=== PATIENT | male | born 1980 | race Caucasian/White ===

== ENCOUNTER → 2020-02-05 15:01 | Outpatient (BNVA) | payer OTHER, SELFPAY | PROVIDERS: Visit Provider Internal Medicine | DX: F11.20 Opioid dependence, uncomplicated (principal) | CPT/HCPCS: 80305; 99212 ==

== ENCOUNTER → 2020-02-15 14:28 | Outpatient (BNVA) | payer OTHER, SELFPAY | PROVIDERS: Visit Provider Internal Medicine | DX: F11.99 Opioid use, unspecified with unspecified opioid-induced disorder (principal) | CPT/HCPCS: 80305; 99211 ==

== ENCOUNTER → 2020-02-26 11:06 | Outpatient (BNVA) | payer OTHER, SELFPAY | PROVIDERS: Visit Provider Internal Medicine | DX: F11.99 Opioid use, unspecified with unspecified opioid-induced disorder (principal) | CPT/HCPCS: 80305; 99212 ==

== ENCOUNTER → 2020-03-02 13:35 | Outpatient (BNVA) | payer OTHER, SELFPAY | PROVIDERS: Visit Provider Internal Medicine | DX: F11.20 Opioid dependence, uncomplicated (principal) | CPT/HCPCS: 80305; 99212 ==

== ENCOUNTER → 2020-03-07 15:26 | Outpatient (BNVA) | payer OTHER, SELFPAY | PROVIDERS: Visit Provider Internal Medicine | DX: F11.99 Opioid use, unspecified with unspecified opioid-induced disorder (principal) | CPT/HCPCS: 80305; 99212 ==

== ENCOUNTER → 2020-03-11 13:44 | Outpatient (BNVA) | payer OTHER, SELFPAY | PROVIDERS: Visit Provider Internal Medicine | DX: F11.20 Opioid dependence, uncomplicated (principal) | CPT/HCPCS: 80305; 99212 ==

== ENCOUNTER 2020-03-14 07:45 | Outpatient (REF) | payer OTHER, SELFPAY | END 2020-03-14 07:46 | disposition home or self-care (01) | LOC: HO.LAB 07:45 | PROVIDERS: Visit Provider Internal Medicine | DX: Z20.828 Contact with and (suspected) exposure to other viral communicable diseases (principal) | CPT/HCPCS: C9803; U0003 ==

== ENCOUNTER → 2020-03-21 13:40 | Outpatient (BNVA) | payer OTHER, SELFPAY | PROVIDERS: Visit Provider Internal Medicine | DX: Z76.89 Persons encountering health services in other specified circumstances (principal) ==

== ENCOUNTER → 2020-03-28 16:02 | Outpatient (BNVA) | payer OTHER, SELFPAY | PROVIDERS: Visit Provider Internal Medicine | DX: Z76.89 Persons encountering health services in other specified circumstances (principal) ==

== ENCOUNTER → 2020-04-04 13:43 | Outpatient (BNVA) | payer OTHER, SELFPAY | PROVIDERS: Visit Provider Internal Medicine | DX: Z76.89 Persons encountering health services in other specified circumstances (principal) | CPT/HCPCS: Q3014 ==

== ENCOUNTER → 2020-04-18 14:58 | Outpatient (BNVA) | payer OTHER, SELFPAY | PROVIDERS: Visit Provider Internal Medicine | DX: Z76.89 Persons encountering health services in other specified circumstances (principal) ==

== ENCOUNTER → 2020-05-02 14:29 | Outpatient (BNVA) | payer OTHER, SELFPAY | PROVIDERS: Visit Provider Internal Medicine | DX: F11.20 Opioid dependence, uncomplicated (principal) | CPT/HCPCS: Q3014 ==

== ENCOUNTER → 2020-05-13 15:01 | Outpatient (BNVA) | payer OTHER, SELFPAY | PROVIDERS: Visit Provider Internal Medicine | DX: F11.99 Opioid use, unspecified with unspecified opioid-induced disorder (principal) | CPT/HCPCS: 99212 ==

== ENCOUNTER → 2020-05-17 12:55 | Outpatient (BNVA) | payer OTHER, SELFPAY | PROVIDERS: Visit Provider Internal Medicine | DX: F11.99 Opioid use, unspecified with unspecified opioid-induced disorder (principal); Z51.81 Encounter for therapeutic drug level monitoring | CPT/HCPCS: 80305; Q3014 ==

== ENCOUNTER → 2020-05-23 13:02 | Outpatient (BNVA) | payer OTHER, SELFPAY | PROVIDERS: Visit Provider Internal Medicine | DX: Z13.89 Encounter for screening for other disorder (principal) | CPT/HCPCS: 99212 ==

== ENCOUNTER → 2020-05-30 11:22 | Outpatient (BNVA) | payer OTHER, SELFPAY | PROVIDERS: Visit Provider Internal Medicine | DX: Z13.89 Encounter for screening for other disorder (principal) | CPT/HCPCS: Q3014 ==

== ENCOUNTER → 2020-05-31 14:51 | Outpatient (BNVA) | payer OTHER, SELFPAY | PROVIDERS: Visit Provider Internal Medicine | DX: F11.99 Opioid use, unspecified with unspecified opioid-induced disorder (principal) | CPT/HCPCS: 80305; 96372; 99212 ==

== ENCOUNTER → 2020-06-27 11:26 | Outpatient (BNVA) | payer OTHER, SELFPAY | PROVIDERS: Visit Provider Internal Medicine | DX: F11.99 Opioid use, unspecified with unspecified opioid-induced disorder (principal) | CPT/HCPCS: 96372; 99212; Q9992 ==

== ENCOUNTER → 2021-03-15 13:26 | Outpatient (BNVA) | payer OTHER, SELFPAY | PROVIDERS: Visit Provider Internal Medicine | DX: F11.20 Opioid dependence, uncomplicated (principal); Z51.81 Encounter for therapeutic drug level monitoring; Z79.899 Other long term (current) drug therapy | CPT/HCPCS: 80305; 99212 ==

== ENCOUNTER → 2021-03-22 13:10 | Outpatient (BNVA) | payer OTHER, SELFPAY | PROVIDERS: Visit Provider Internal Medicine | DX: Z51.81 Encounter for therapeutic drug level monitoring (principal); F11.90 Opioid use, unspecified, uncomplicated | CPT/HCPCS: 80305; 99212 ==

== ENCOUNTER → 2021-04-05 14:07 | Outpatient (BNVA) | payer OTHER, SELFPAY | PROVIDERS: Visit Provider Internal Medicine | DX: Z51.81 Encounter for therapeutic drug level monitoring (principal); F11.20 Opioid dependence, uncomplicated | CPT/HCPCS: 80305; 99212 ==

== ENCOUNTER → 2021-04-12 14:13 | Outpatient (BNVA) | payer OTHER, SELFPAY | PROVIDERS: Visit Provider Internal Medicine | DX: Z51.81 Encounter for therapeutic drug level monitoring (principal); F11.20 Opioid dependence, uncomplicated | CPT/HCPCS: 80305; 99212 ==

== ENCOUNTER → 2021-04-26 13:46 | Outpatient (BNVA) | payer OTHER, SELFPAY | PROVIDERS: PCP Nurse Practitioner Family; Visit Provider Internal Medicine | DX: Z51.81 Encounter for therapeutic drug level monitoring (principal); F11.20 Opioid dependence, uncomplicated | CPT/HCPCS: 80305 ==

== ENCOUNTER 2021-05-02 16:46 | Outpatient (REF) | payer OTHER, SELFPAY ==
[2021-05-03 05:26] LABS: CT PCR NOT DETECTED (Not Detect.); NG PCR NOT DETECTED (Not Detect.)
== END 2021-05-02 16:47 | disposition home or self-care (01) ==
LOC: HO.LNP 16:46
PROVIDERS: Visit Provider Physician Assistant
DX: R30.0 Dysuria (principal)
CPT/HCPCS: 87491; 87591

== ENCOUNTER → 2021-05-10 13:48 | Outpatient (BNVA) | payer OTHER, SELFPAY | PROVIDERS: Visit Provider Internal Medicine | DX: F11.20 Opioid dependence, uncomplicated (principal); Z51.81 Encounter for therapeutic drug level monitoring; Z79.899 Other long term (current) drug therapy | CPT/HCPCS: 80305; 99212 ==

== ENCOUNTER → 2021-06-07 11:51 | Outpatient (BNVA) | payer OTHER, SELFPAY | PROVIDERS: Visit Provider Internal Medicine | DX: Z51.81 Encounter for therapeutic drug level monitoring (principal); F11.20 Opioid dependence, uncomplicated | CPT/HCPCS: 99212 ==

== ENCOUNTER → 2021-07-07 11:35 | Outpatient (BNVA) | payer OTHER, SELFPAY | PROVIDERS: Visit Provider Internal Medicine | DX: F11.20 Opioid dependence, uncomplicated (principal) | CPT/HCPCS: 99212 ==

== ENCOUNTER → 2021-08-04 14:46 | Outpatient (BNVA) | payer OTHER, SELFPAY | PROVIDERS: Visit Provider Internal Medicine | DX: Z51.81 Encounter for therapeutic drug level monitoring (principal); F11.20 Opioid dependence, uncomplicated | CPT/HCPCS: 80305; 99212 ==

== ENCOUNTER → 2021-09-01 11:31 | Outpatient (BNVA) | payer OTHER, SELFPAY | PROVIDERS: Visit Provider Internal Medicine | DX: Z51.81 Encounter for therapeutic drug level monitoring (principal); F11.20 Opioid dependence, uncomplicated | CPT/HCPCS: 80305; 99212 ==

== ENCOUNTER → 2021-10-27 11:30 | Outpatient (BNVA) | payer OTHER, SELFPAY | PROVIDERS: Visit Provider Internal Medicine | DX: Z51.81 Encounter for therapeutic drug level monitoring (principal); F11.20 Opioid dependence, uncomplicated | CPT/HCPCS: 80305; 99212 ==

== ENCOUNTER → 2022-01-05 10:38 | Outpatient (BNVA) | payer OTHER, SELFPAY | PROVIDERS: Visit Provider Internal Medicine | DX: Z51.81 Encounter for therapeutic drug level monitoring (principal); F11.20 Opioid dependence, uncomplicated | CPT/HCPCS: 99212 ==

== ENCOUNTER → 2022-03-07 10:39 | Outpatient (BNVA) | payer OTHER, SELFPAY | PROVIDERS: Visit Provider Internal Medicine | DX: Z51.81 Encounter for therapeutic drug level monitoring (principal); F11.20 Opioid dependence, uncomplicated | CPT/HCPCS: 99212 ==

== ENCOUNTER → 2022-05-14 11:35 | Outpatient (BNVA) | payer OTHER, SELFPAY | PROVIDERS: Visit Provider Internal Medicine | DX: F11.20 Opioid dependence, uncomplicated (principal); Z51.81 Encounter for therapeutic drug level monitoring; Z79.899 Other long term (current) drug therapy | CPT/HCPCS: 99212 ==

== ENCOUNTER → 2022-07-13 11:33 | Outpatient (BNVA) | payer OTHER, SELFPAY | PROVIDERS: PCP Nurse Practitioner Family; Visit Provider Nurse Practitioner Psychiatric/Mental Health | DX: F11.20 Opioid dependence, uncomplicated (principal); Z79.899 Other long term (current) drug therapy | CPT/HCPCS: 99212 ==

== ENCOUNTER → 2022-09-07 11:28 | Outpatient (BNVA) | payer OTHER, SELFPAY | PROVIDERS: PCP Nurse Practitioner Family; Visit Provider Nurse Practitioner Psychiatric/Mental Health | DX: F11.20 Opioid dependence, uncomplicated (principal); Z79.899 Other long term (current) drug therapy | CPT/HCPCS: 99212 ==

== ENCOUNTER 2022-12-14 13:43 | Outpatient (REF) | payer OTHER, SELFPAY ==
[2022-12-14 16:29] LABS: Alanine Aminotransferase 60 U/L (0-40); Albumin Level 4.5 g/dL (3.5-5.0); Alkaline Phosphatase 64 U/L (39-117); Anion Gap 11 (12-20); Aspartate Amino Transferase 35 U/L (5-37); Bilirubin Total 0.5 mg/dL (0.0-1.0); Blood Urea Nitrogen 13 mg/dL (9-16); Calcium 9.9 mg/dL (8.4-10.2); Carbon Dioxide 27 mmol/L (22-29); Chloride 105 mmol/L (96-108); Estimated Glomerular Filt Rate > 60; Glucose Random 138 mg/dL (60-115); Potassium 3.9 mmol/L (3.3-5.1); Sodium 139 mmol/L (135-145); Total Protein 7.2 g/dL (6.5-8.0)
== END 2022-12-14 13:44 | disposition home or self-care (01) ==
LOC: HO.LAB 13:43
PROVIDERS: PCP Nurse Practitioner Family; Visit Provider Nurse Practitioner Psychiatric/Mental Health
DX: F11.20 Opioid dependence, uncomplicated (principal); Z79.899 Other long term (current) drug therapy
CPT/HCPCS: 36415; 80053; 99212

== ENCOUNTER 2022-12-14 13:43 | Outpatient (AMB) | payer OTHER, SELFPAY ==
--- NOTE | 2022-12-14 13:48 | MHC.OFFVIS ---
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 Required: No Allergies lamotrigine [Lamictal] Allergy (Severe, Verified 12/14/22 13:56) rash amoxicillin Allergy (Mild, Verified 12/14/22 13:56) rash penicillins Allergy (Unknown, Uncoded 12/14/22 13:56) hives sulfa Allergy (Unknown, Uncoded 12/14/22 13:56) hives Do you need a note to return to daycare/school/sports/work: No HPI MAT Visit HPI Details Pt presents for OUD treatment follow up Currently being prescribed Suboxone 8 mg daily Denies any side effects related to medication--reports constipation has improved Engaged in outpt treatment with Amitriptyline increased to 100mg Has not had physical needs to be seen--will be completing lab work today Stopped working at [employer] --has been working with [employer] [facility] Medical History (Updated 07/13/22 @ 13:11 by Fide Canela CNP) Opioid use disorder Social History Patient Tobacco Use Status: Never used Tobacco Review of Systems Const Reports as per HPI and Reports no additional complaints Physical Exam Vital Signs: Last Vital Signs Pulse 94 12/14/22 13:55 BP 128/74 12/14/22 13:55 Pulse Ox 97 12/14/22 13:55 Oxygen Delivery Method Room Air 12/14/22 13:55 Const General: cooperative, healthy appearing and anxious Psych Appearance: well kempt Speech and movement: Clear speech present Affect: Anxious affect present Attitude: cooperative Thought process: Normal thought process present Insight: Fair insight present (Psych) Assessment & Plan Assessment & Plan (1) Opioid use disorder: Code(s): F11.99 - Opioid use, unspecified with unspecified opioid-induced disorder Plan: Continue Suboxone at current dose Follow-up 3 months Medications: Refilled buprenorphine-naloxone 8-2 mg (Suboxone) 1 film sublingual DAILY 30 ea 2RF 30 days Coding Level of Care Code Est Pt Level 3 (81692) Diagnoses Opioid use disorder F11.99
[2022-12-14 13:55] VITALS: BP 128/74; PULSE 94; O2SAT 97
== END 2022-12-14 14:15 | disposition home or self-care (01) ==
LOC: HO.HCC 13:43
PROVIDERS: PCP Nurse Practitioner Family; Visit Provider Nurse Practitioner Psychiatric/Mental Health
DX: F11.99 Opioid use, unspecified with unspecified opioid-induced disorder (principal)
CPT/HCPCS: 99213

== ENCOUNTER 2023-01-21 16:48 | Inpatient (IN) | payer OTHER, SELFPAY ==
--- NOTE | 2023-01-21 16:55 | MHC.CARE ---
Pt seen by [facility] in the community for crisis assessment, he currently meets inpatient level of care, pending acceptance.
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
[2023-01-21 17:04] VITALS: BP 131/78; PULSE 105; RESP 18; TEMP 36.7; O2SAT 97; BMI 35.5
[2023-01-21 17:41] LABS: MANUAL DIFF FLAG NO
[2023-01-21 17:44] LABS: Basophils Percent Auto 0.4 % (0-2); Eosinophils Absolute Auto 0.1 X10*3/uL (0.0-0.4); Eosinophils Percent Auto 0.6 % (0-4); Hematocrit 39.7 % (42.0-52.0); Hemoglobin 13.7 g/dl (14.0-18.0); Imm Gran Abs Auto 0.02 X10*3/uL (0.00-0.03); Imm Gran Pct Auto 0.2 % (0.0-0.4); Lymphocytes Absolute Auto 1.7 X10*3/uL (1.2-4.9); Lymphocytes Percent Auto 19.4 % (20-40); Mean Corpuscular HGB Conc 34.5 g/dl (31.0-36.0); Mean Corpuscular Hemoglobin 29.8 pg (27.0-33.0); Mean Corpuscular Volume 86.5 fL (80.0-98.0); Mean Platelet Volume 10.2 fL (9.4-12.4); Monocytes Absolute Auto 0.4 X10*3/uL (0.1-1.2); Monocytes Percent Auto 4.5 % (2-11); Neutrophils Absolute Auto 6.7 x10*3/uL (2.0-8.3); Neutrophils Percent Auto 74.9 % (45-73); Platelet Count 164 X10*3/uL (160-400); Red Blood Count 4.59 X10*6/uL (4.60-5.80); Red Cell Distribution Width 13.1 % (11.0-16.0); White Blood Count 8.9 X10*3/uL (4.8-10.8)
[2023-01-21 17:58] LABS: COVID-19 Test Negative (Negative); IDNOW Serial# 08D9AD1C
[2023-01-21 18:00] LABS: Alanine Aminotransferase 48 U/L (0-40); Alkaline Phosphatase 73 U/L (39-117); Anion Gap 15 (12-20); Aspartate Amino Transferase 31 U/L (5-37); Bilirubin Direct 0.2 mg/dL (0.0-0.5); Bilirubin Total 0.5 mg/dL (0.0-1.0); Blood Urea Nitrogen 15 mg/dL (9-16); Calcium 9.8 mg/dL (8.4-10.2); Carbon Dioxide 22 mmol/L (22-29); Chloride 107 mmol/L (96-108); Creatinine Clr Calc Pharmacy 120.9; Estimated Glomerular Filt Rate > 60; Ethanol < 10 mg/dL; Glucose Random 103 mg/dL (60-115); Potassium 3.5 mmol/L (3.3-5.1); Sodium 140 mmol/L (135-145)
[2023-01-21 18:10] LABS: Amphetamine Screen Urine Not Detected (Not Detect); Barbiturates, Urine Not Detected (Not Detect); Benzodiazepines Screen Urine Not Detected (Not Detect); Cannabinoid Screen Urine Not Detected (Not Detect); Cocaine Screen Urine Not Detected (Not Detect); Fentanyl, urine Not Detected (Not Detect); Opiate Screen Urine Not Detected (Not Detect); Phencyclidine Screen Urine Not Detected (Not Detect)
[2023-01-21 18:28] VITALS: BP 102/74; PULSE 96; RESP 18; TEMP 36.1; O2SAT 97
[2023-01-21 18:36] LABS: Appearance Urine Cloudy; Color Urine Dark Yellow; Glucose Urine UA Negative (Negative); Leukocyte Esterase Urine Negative (Negative); Nitrite Urine Negative (Negative); Specific Gravity - Urine >= 1.030 (1.005-1.025); UMIC TRIGGER UACC YES; Urine Blood Negative (Negative); Urine Ketones 80 mg/dL (Negative); Urine Protein 30 (1+) mg/dL (Neg-Trace)
[2023-01-21 18:55] LABS: Bacteria Urine None Seen (None Seen); Calcium Oxalate Crystals Urine Present; RBC Urine 0-2 /HPF (0-2); WBC Urine 0-5 /HPF (0-5)
[2023-01-21] MEDS: Zolpidem Tartrate 5 MG TABLET 10 MG PO (20:20)
[2023-01-21 22:59] VITALS: BP 128/72; PULSE 94; RESP 17; TEMP 36.7; O2SAT 97
[2023-01-21] MEDS: hydrOXYzine HCL 25 MG TABLET PO (23:24)
--- NOTE | 2023-01-22 00:14 | PC.ADMIT ---
Patient arrived to unit at approx 2230 in [facility], appears slightly anxious and states that he wants to go to sleep because he took some ambien in the ED and wont be able to get back to sleep if he stays up. RN requested that he have a seat and talk for a few minutes but he did not want to participate in admission assessment at that time. RN asked him how he was feeling and he only states that he is feeling better . When RN pressed on what he meant by that he states that he doesnt want to talk about anything right now and just wants to go to sleep. His VSS. Patient uses bipap for DYLLAN. There was some difficulty with getting him set up with a hospital machine with the nasal pillows he uses. He has his own machine that he was using in the ED but was not allowed to use it on the unit. Patient was administered hydroxyzine and was offered trazadone to assist with sleep if he needed it. Will continue to assess patient overnight and continue with care team in the morning.
[2023-01-22] MEDS: fluvoxaMINE Maleate 50 MG TABLET PO (09:08)
[2023-01-22 09:09] LABS: Estimated Average Glucose 117 mg/dL; Hemoglobin A1c % 5.7 % (<6.0)
[2023-01-22] MEDS: Buprenorphine/Naloxone 8/2 mg FILM 1 FILM SUBLINGUAL (09:09)
[2023-01-22 09:23] LABS: Alanine Aminotransferase 42 U/L (0-40); Albumin Level 4.4 g/dL (3.5-5.0); Alkaline Phosphatase 71 U/L (39-117); Anion Gap 17 (12-20); Aspartate Amino Transferase 30 U/L (5-37); Bilirubin Total 0.4 mg/dL (0.0-1.0); Blood Urea Nitrogen 17 mg/dL (9-16); Calcium 9.5 mg/dL (8.4-10.2); Carbon Dioxide 25 mmol/L (22-29); Chloride 104 mmol/L (96-108); Cholesterol 153 mg/dL (<200); Estimated Glomerular Filt Rate > 60; Glucose Fasting 104 mg/dL (60-99); HDL Cholesterol 52 mg/dL (>40); LDL Cholesterol Calculated 85 mg/dL (<100); Potassium 3.8 mmol/L (3.3-5.1); Sodium 142 mmol/L (135-145); Total Protein 7.1 g/dL (6.5-8.0); Triglycerides 83 mg/dL (<150)
[2023-01-22 09:39] LABS: Thyroid Stimulating Hormone 1.33 uIU/mL (0.32-4.0)
[2023-01-22 09:44] VITALS: BP 113/65; PULSE 82; RESP 18; TEMP 36.7; O2SAT 99
[2023-01-22 09:44] LABS: Folate 10.9 ng/mL (> or = 4.0); Vitamin B12 1562 pg/mL (200-900)
[2023-01-22] MEDS: Atorvastatin Calcium 20 MG TABLET PO (20:31)
[2023-01-22] MEDS: Zolpidem Tartrate 5 MG TABLET 10 MG PO (20:31)
[2023-01-22] MEDS: Tamsulosin HCL 0.4 MG CAPSULE PO (20:31)
[2023-01-22] MEDS: Amitriptyline HCl 50 MG TABLET 100 MG PO (20:31)
[2023-01-22] MEDS: hydrOXYzine HCL 25 MG TABLET PO (20:33)
[2023-01-22 20:45] VITALS: BP 132/74; PULSE 90; RESP 18; TEMP 36.5; O2SAT 96
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
[2023-01-23 08:19] VITALS: BP 125/63; PULSE 88; RESP 17; TEMP 36.3; O2SAT 98
[2023-01-23] MEDS: Buprenorphine/Naloxone 8/2 mg FILM 1 FILM SUBLINGUAL (08:20)
[2023-01-23] MEDS: fluvoxaMINE Maleate 50 MG TABLET 75 MG PO (08:20)
--- NOTE | 2023-01-23 15:13 | P.PNPSI_ITS ---
Subjective Subjective Date of Service: 01/23/23 Reason For Visit: SI Interim History: calm, cooperative. states he slept well. interested in increasing tamsulosin to 0.8 mg and decreasing fanapt to 6 mg (IVM of jaw clenching, unsure indication for medication). per staff, isolative. anx 08/06. med compliant. slept well with ambien and CPAP. panic attacks 2/2 not being able to urinate at home. no c/o such Sx here. Mental Status Exam Mental Status Exam Narrative: adequately dressed and groomed, no PMA/PMR, cooperative. adriana complexion with dry, flaky skin on face. speech incr in rate, nml amount, loudness, latency. thoughts linear and logical. affect constricted, normo-intense, non-labile. mood OK. no SI/SIBI/HI/AVH expressed. Diagnostics Vital Signs (24Hr): Vital Signs - 24 hr 01/22/23 20:45 01/23/23 08:19 Temperature 97.7 F 97.4 F Pulse Rate 90 88 Respiratory Rate 18 17 Blood Pressure 132/74 125/63 Pulse Oximetry 96 98 Oxygen Delivery Method Room Air Room Air BMI result Body Mass Index 35.5 Labs 01/21/23 17:36 01/22/23 08:06 Labs: Laboratory Results - last 48 hr 01/21/23 01/21/23 01/21/23 17:36 17:36 17:42 WBC 8.9 RBC 4.59 L Hgb 13.7 L Hct 39.7 L MCV 86.5 MCH 29.8 MCHC 34.5 RDW 13.1 Plt Count 164 MPV 10.2 Immature Gran % (Auto) 0.2 Neut % (Auto) 74.9 H Lymph % (Auto) 19.4 L Yates % (Auto) 4.5 Eos % (Auto) 0.6 Baso % (Auto) 0.4 Lymph # (Auto) 1.7 Yates # (Auto) 0.4 Eos # (Auto) 0.1 Baso # (Auto) 0.0 Abs Immat Gran (auto) 0.02 Absolute Neuts (auto) 6.7 Absolute Nucleated RBC 0.000 Nucleated RBC % (auto) 0.0 Sodium 140 Potassium 3.5 Chloride 107 Carbon Dioxide 22 Anion Gap 15 BUN 15 Creatinine 0.88 Estim Creat Clear Calc 120.9 Estimated GFR > 60 Random Glucose 103 Fasting Glucose Estimat Average Glucose Hemoglobin A1c % Calcium 9.8 Total Bilirubin 0.5 Direct Bilirubin 0.2 AST 31 ALT 48 H Alkaline Phosphatase 73 Total Protein 8.0 Albumin 5.0 Triglycerides Cholesterol LDL Cholesterol, Calc HDL Cholesterol Vitamin B12 Folate TSH Urine Color Dark Yellow Urine Appearance Cloudy Urine pH 6.0 Ur Specific [place] >= 1.030 H Urine Protein 30 (1+) H Urine Glucose (UA) Negative Urine Ketones 80 Urine Blood Negative Urine Nitrite Negative Ur Leukocyte Esterase Negative Urine RBC 0-2 Urine WBC 0-5 Ur Squamous Epith Cells 3-5 Calcium Oxalate Crystal Present Urine Bacteria None Seen Hyaline Casts 6-10 Urine Opiates Screen Urine Fentanyl Screen Ur Barbiturates Screen Ur Phencyclidine Scrn Ur Amphetamines Screen U Benzodiazepines Scrn Urine Cocaine Screen U Marijuana (THC) Screen Ethyl Alcohol < 10 Cancelled COVID-19 (LOLLY) Negative COVID-19 Clin Com See Note 01/21/23 01/22/23 01/22/23 17:52 08:05 08:06 WBC RBC Hgb Hct MCV MCH MCHC RDW Plt Count MPV Immature Gran % (Auto) Neut % (Auto) Lymph % (Auto) Yates % (Auto) Eos % (Auto) Baso % (Auto) Lymph # (Auto) Yates # (Auto) Eos # (Auto) Baso # (Auto) Abs Immat Gran (auto) Absolute Neuts (auto) Absolute Nucleated RBC Nucleated RBC % (auto) Sodium 142 Potassium 3.8 Chloride 104 Carbon Dioxide 25 Anion Gap 17 BUN 17 H Creatinine 0.95 Estim Creat Clear Calc 112.0 Estimated GFR > 60 Random Glucose Fasting Glucose 104 H Estimat Average Glucose 117 Hemoglobin A1c % 5.7 Calcium 9.5 Total Bilirubin 0.4 Direct Bilirubin AST 30 ALT 42 H Alkaline Phosphatase 71 Total Protein 7.1 Albumin 4.4 Triglycerides 83 Cholesterol 153 LDL Cholesterol, Calc 85 HDL Cholesterol 52 Vitamin B12 1562 H Folate 10.9 TSH 1.33 Urine Color Urine Appearance Urine pH Ur Specific [place] Urine Protein Urine Glucose (UA) Urine Ketones Urine Blood Urine Nitrite Ur Leukocyte Esterase Urine RBC Urine WBC Ur Squamous Epith Cells Calcium Oxalate Crystal Urine Bacteria Hyaline Casts Urine Opiates Screen Not Detected Urine Fentanyl Screen Not Detected Ur Barbiturates Screen Not Detected Ur Phencyclidine Scrn Not Detected Ur Amphetamines Screen Not Detected U Benzodiazepines Scrn Not Detected Urine Cocaine Screen Not Detected U Marijuana (THC) Screen Not Detected Ethyl Alcohol COVID-19 (LOLLY) COVID-19 Clin Com Medications Medications Current Medications Acetaminophen (Acetaminophen 325 Mg Tablet) 650 mg PO Q6H PRN PRN Reason: Headache/Pain Mild Scale (1-3) Al Hydroxide/Mg Hydroxide (Magnesium Hydrox/Alum Hydrox 30 Ml Oral.Susp) 30 ml PO Q6H PRN PRN Reason: Heartburn/Nausea Amitriptyline HCl (Amitriptyline Hcl 50 Mg Tablet) 100 mg PO BEDTIME DAVID Last Admin: 01/22/23 20:31 Dose: 100 mg Atorvastatin Calcium (Atorvastatin Calcium 20 Mg Tablet) 20 mg PO BEDTIME DAVID Last Admin: 01/22/23 20:31 Dose: 20 mg Buprenorphine/Naloxone (Buprenorphine/Naloxone 8/2 Mg Film) 1 film SUBLINGUAL DAILY DAVID Last Admin: 01/23/23 08:20 Dose: 1 film Fluvoxamine Maleate (Fluvoxamine Maleate 50 Mg Tablet) 75 mg PO DAILY [facility] Last Admin: 01/23/23 08:20 Dose: 75 mg Hydroxyzine HCl (Hydroxyzine Hcl 25 Mg Tablet) 25 mg PO Q6H PRN PRN Reason: Anxiety Last Admin: 01/22/23 20:33 Dose: 25 mg Magnesium Hydroxide (Milk Of Magnesia 30 Ml Oral.Susp) 30 ml PO DAILY PRN PRN Reason: Constipation Patient Own ( Iloperidone [Fanapt] 6 Mg) 6 mg PO BEDTIME DAVID Tamsulosin HCl (Tamsulosin Hcl 0.4 Mg Capsule) 0.8 mg PO BEDTIME DAVID Trazodone HCl (Trazodone Hcl 50 Mg Tablet) 50 mg PO BEDTIME MRX1 PRN PRN Reason: Insomnia Zolpidem Tartrate (Zolpidem Tartrate 5 Mg Tablet) 10 mg PO BEDTIME PRN PRN Reason: Insomnia Last Admin: 01/22/23 20:31 Dose: 10 mg Allergies Allergies Allergy/AdvReac Type Severity Reaction Status Date / Time lamotrigine [Lamictal] Allergy Severe rash Verified 01/21/23 17:03 amoxicillin Allergy Mild rash Verified 01/21/23 17:03 penicillins Allergy Unknown hives Uncoded 12/14/22 13:56 sulfa Allergy Unknown hives Uncoded 12/14/22 13:56 Assessment & Plan Assessment & Plan (1) OCD (obsessive compulsive disorder): Qualifiers: Obsessive-compulsive disorder type: unspecified Qualified Code(s): F 42.9 - Obsessive-compulsive disorder, unspecified Status: Acute Code(s): F42.9 - Obsessive-compulsive disorder, unspecified (2) Opioid use disorder: Status: Acute Code(s): F11.99 - Opioid use, unspecified with unspecified opioid-induced disorder (3) Sedative or hypnotic abuse: Status: Acute Code(s): F13.10 - Sedative, hypnotic or anxiolytic abuse, uncomplicated Plan 01/22: continue outpt regimen for now aside from changes below. call placed to dr. mojica for collateral. bipolar disorder Dx is not well established by history; OCD is. restart tamsulosin 0.4 mg QHS per pt request. increase luvox to 75 mg QHS per pt request. 01/23: no return call from [facility] yet. increase tamsulosin to 0.8 mg QHS per pt request - states he has been on this dose in the past. decrease iloperidone to 6 mg QHS due to unsure indication and apparent IVM of jaw clenching. Reason for continued inpatient stay Substantial Risk for: harm to self, inability to function and rapid decompensation Time Spent With Patient Time: Total time managing care of this patient today __25__ minutes.
[2023-01-23] MEDS: Atorvastatin Calcium 20 MG TABLET PO (19:59)
[2023-01-23] MEDS: Amitriptyline HCl 50 MG TABLET 100 MG PO (19:59)
[2023-01-23] MEDS: Tamsulosin HCL 0.4 MG CAPSULE 0.8 MG PO (20:00)
[2023-01-23] MEDS: Zolpidem Tartrate 5 MG TABLET 10 MG PO (20:00)
[2023-01-23 20:43] VITALS: BP 132/78; PULSE 98; TEMP 36.6; O2SAT 98
[2023-01-23] MEDS: hydrOXYzine HCL 25 MG TABLET PO (22:04)
[2023-01-24 07:00] VITALS: BMI 32.3
[2023-01-24 09:00] VITALS: BP 144/84; PULSE 105; RESP 18; TEMP 36.1; O2SAT 99
[2023-01-24] MEDS: Buprenorphine/Naloxone 8/2 mg FILM 1 FILM SUBLINGUAL (09:07)
[2023-01-24] MEDS: fluvoxaMINE Maleate 50 MG TABLET 75 MG PO (09:07)
[2023-01-24] MEDS: Hydrocortisone 1 % Cream 28.35 GM TUBE 1 APPL TOPICAL (12:27)
--- NOTE | 2023-01-24 15:32 | P.PNPSI_ITS ---
Subjective Subjective Date of Service: 01/24/23 Reason For Visit: SI Interim History: calm, cooperative. feels his bladder Sx have improved a bit. asking for luvox increase to 125 today, which is accommodated. he feels it has been helpful for him. also asking for cream for what appears to be a dermatitis on his face; steroid cream agreed upon. would like to stay through the weekend for continued stabilization with likely plan to DC early next week. per staff, anxious. bladder concerns. wants to take someone else's meds to fix his problem? slept well. Mental Status Exam Mental Status Exam Narrative: adequately dressed and groomed, no PMA/PMR, cooperative. adriana complexion with dry, flaky skin on face. speech incr in rate, nml amount, loudness, latency. thoughts linear and logical. affect constricted, normo-intense, non-labile. mood OK. no SI/SIBI/HI/AVH expressed. Diagnostics Vital Signs (24Hr): Vital Signs - 24 hr 01/23/23 20:43 01/24/23 09:00 Temperature 97.8 F 97.0 F Pulse Rate 98 105 H Respiratory Rate 18 Blood Pressure 132/78 144/84 H Pulse Oximetry 98 99 Oxygen Delivery Method Room Air Room Air BMI result Body Mass Index 32.3 Labs 01/21/23 17:36 01/22/23 08:06 Medications Medications Current Medications Acetaminophen (Acetaminophen 325 Mg Tablet) 650 mg PO Q6H PRN PRN Reason: Headache/Pain Mild Scale (1-3) Al Hydroxide/Mg Hydroxide (Magnesium Hydrox/Alum Hydrox 30 Ml Oral.Susp) 30 ml PO Q6H PRN PRN Reason: Heartburn/Nausea Amitriptyline HCl (Amitriptyline Hcl 50 Mg Tablet) 100 mg PO BEDTIME DAVID Last Admin: 01/23/23 19:59 Dose: 100 mg Atorvastatin Calcium (Atorvastatin Calcium 20 Mg Tablet) 20 mg PO BEDTIME DAVID Last Admin: 01/23/23 19:59 Dose: 20 mg Buprenorphine/Naloxone (Buprenorphine/Naloxone 8/2 Mg Film) 1 film SUBLINGUAL DAILY DAVID Last Admin: 01/24/23 09:07 Dose: 1 film Fluvoxamine Maleate (Fluvoxamine Maleate 50 Mg Tablet) 125 mg PO DAILY DAVID Hydrocortisone (Hydrocortisone 1 % Cream 28.35 Gm Tube) 1 appl TOPICAL DAILY DAVID; Protocol Last Admin: 01/24/23 12:27 Dose: 1 appl Hydroxyzine HCl (Hydroxyzine Hcl 25 Mg Tablet) 25 mg PO Q6H PRN PRN Reason: Anxiety Last Admin: 01/23/23 22:04 Dose: 25 mg Magnesium Hydroxide (Milk Of Magnesia 30 Ml Oral.Susp) 30 ml PO DAILY PRN PRN Reason: Constipation Patient Own ( Iloperidone [Fanapt] 6 Mg) 6 mg PO BEDTIME DAVID Tamsulosin HCl (Tamsulosin Hcl 0.4 Mg Capsule) 0.8 mg PO BEDTIME DAVID Last Admin: 01/23/23 20:00 Dose: 0.8 mg Trazodone HCl (Trazodone Hcl 50 Mg Tablet) 50 mg PO BEDTIME MRX1 PRN PRN Reason: Insomnia Zolpidem Tartrate (Zolpidem Tartrate 5 Mg Tablet) 10 mg PO BEDTIME PRN PRN Reason: Insomnia Last Admin: 01/23/23 20:00 Dose: 10 mg Allergies Allergies Allergy/AdvReac Type Severity Reaction Status Date / Time lamotrigine [Lamictal] Allergy Severe rash Verified 01/21/23 17:03 amoxicillin Allergy Mild rash Verified 01/21/23 17:03 penicillins Allergy Unknown hives Uncoded 12/14/22 13:56 sulfa Allergy Unknown hives Uncoded 12/14/22 13:56 Assessment & Plan Assessment & Plan (1) OCD (obsessive compulsive disorder): Qualifiers: Obsessive-compulsive disorder type: unspecified Qualified Code(s): F 42.9 - Obsessive-compulsive disorder, unspecified Status: Acute Code(s): F42.9 - Obsessive-compulsive disorder, unspecified (2) Opioid use disorder: Status: Acute Code(s): F11.99 - Opioid use, unspecified with unspecified opioid-induced disorder (3) Sedative or hypnotic abuse: Status: Acute Code(s): F13.10 - Sedative, hypnotic or anxiolytic abuse, uncomplicated Plan 01/22: continue outpt regimen for now aside from changes below. call placed to dr. mojica for collateral. bipolar disorder Dx is not well established by history; OCD is. restart tamsulosin 0.4 mg QHS per pt request. increase luvox to 75 mg QHS per pt request. 9/27: no return call from [facility] yet. increase tamsulosin to 0.8 mg QHS per pt request - states he has been on this dose in the past. decrease iloperidone to 6 mg QHS due to unsure indication and apparent IVM of jaw clenching. 01/24: doing well with decrease in iloperidone. tamsulosin helpful for bladder Sx. increase luvox to 125 mg tonight per pt request. add hydrocortisone cream for facial dermatitis. planning for DC early next week. no respnose from [facility]. Reason for continued inpatient stay Substantial Risk for: inability to function and rapid decompensation Time Spent With Patient Time: Total time managing care of this patient today __25__ minutes.
[2023-01-24 20:15] VITALS: BP 156/87; PULSE 109; RESP 18; TEMP 36.4; O2SAT 97
[2023-01-24] MEDS: Zolpidem Tartrate 5 MG TABLET 10 MG PO (20:31)
[2023-01-24] MEDS: Amitriptyline HCl 50 MG TABLET 100 MG PO (20:31)
[2023-01-24] MEDS: Tamsulosin HCL 0.4 MG CAPSULE 0.8 MG PO (20:32)
[2023-01-24] MEDS: Atorvastatin Calcium 20 MG TABLET PO (20:32)
[2023-01-24] MEDS: hydrOXYzine HCL 25 MG TABLET PO (22:52)
[2023-01-25] MEDS: fluvoxaMINE Maleate 50 MG TABLET 125 MG PO (08:31)
[2023-01-25] MEDS: Buprenorphine/Naloxone 8/2 mg FILM 1 FILM SUBLINGUAL (08:31)
[2023-01-25 09:00] VITALS: BP 152/63; PULSE 108; RESP 18; TEMP 36.4; O2SAT 98
--- NOTE | 2023-01-25 14:03 | P.PNPSI_ITS ---
Subjective Subjective Date of Service: 01/25/23 Reason For Visit: SI Interim History: calm, cooperative. stable. no change in mgmt. planning for saturday DC. c/o late CPAP use. per staff, pleasant, anxious. anxious re not getting CPAP until 11. Mental Status Exam Mental Status Exam Narrative: adequately dressed and groomed, no PMA/PMR, cooperative. adriana complexion with dry, flaky skin on face. speech incr in rate, nml amount, loudness, latency. thoughts linear and logical. affect constricted, normo-intense, non-labile. mood OK. no SI/SIBI/HI/AVH expressed. Diagnostics Vital Signs (24Hr): Vital Signs - 24 hr 01/24/23 20:15 Temperature 97.6 F Pulse Rate 109 H Respiratory Rate 18 Blood Pressure 156/87 H Pulse Oximetry 97 Oxygen Delivery Method Room Air BMI result Body Mass Index 32.3 Labs 01/21/23 17:36 01/22/23 08:06 Medications Medications Current Medications Acetaminophen (Acetaminophen 325 Mg Tablet) 650 mg PO Q6H PRN PRN Reason: Headache/Pain Mild Scale (1-3) Al Hydroxide/Mg Hydroxide (Magnesium Hydrox/Alum Hydrox 30 Ml Oral.Susp) 30 ml PO Q6H PRN PRN Reason: Heartburn/Nausea Amitriptyline HCl (Amitriptyline Hcl 50 Mg Tablet) 100 mg PO BEDTIME DAVID Last Admin: 01/24/23 20:31 Dose: 100 mg Atorvastatin Calcium (Atorvastatin Calcium 20 Mg Tablet) 20 mg PO BEDTIME DAVID Last Admin: 01/24/23 20:32 Dose: 20 mg Buprenorphine/Naloxone (Buprenorphine/Naloxone 8/2 Mg Film) 1 film SUBLINGUAL DAILY DAVID Last Admin: 01/25/23 08:31 Dose: 1 film Fluvoxamine Maleate (Fluvoxamine Maleate 50 Mg Tablet) 125 mg PO DAILY DAVID Last Admin: 01/25/23 08:31 Dose: 125 mg Hydrocortisone (Hydrocortisone 1 % Cream 28.35 Gm Tube) 1 appl TOPICAL DAILY DAVID; Protocol Last Admin: 01/24/23 12:27 Dose: 1 appl Hydroxyzine HCl (Hydroxyzine Hcl 25 Mg Tablet) 25 mg PO Q6H PRN PRN Reason: Anxiety Last Admin: 01/24/23 22:52 Dose: 25 mg Magnesium Hydroxide (Milk Of Magnesia 30 Ml Oral.Susp) 30 ml PO DAILY PRN PRN Reason: Constipation Patient Own ( Iloperidone [Fanapt] 6 Mg) 6 mg PO BEDTIME DAVID Last Admin: 01/24/23 20:31 Dose: 6 mg Tamsulosin HCl (Tamsulosin Hcl 0.4 Mg Capsule) 0.8 mg PO BEDTIME DAVID Last Admin: 01/24/23 20:32 Dose: 0.8 mg Trazodone HCl (Trazodone Hcl 50 Mg Tablet) 50 mg PO BEDTIME MRX1 PRN PRN Reason: Insomnia Zolpidem Tartrate (Zolpidem Tartrate 5 Mg Tablet) 10 mg PO BEDTIME PRN PRN Reason: Insomnia Last Admin: 01/24/23 20:31 Dose: 10 mg Allergies Allergies Allergy/AdvReac Type Severity Reaction Status Date / Time lamotrigine [Lamictal] Allergy Severe rash Verified 01/21/23 17:03 amoxicillin Allergy Mild rash Verified 01/21/23 17:03 penicillins Allergy Unknown hives Uncoded 12/14/22 13:56 sulfa Allergy Unknown hives Uncoded 12/14/22 13:56 Assessment & Plan Assessment & Plan (1) OCD (obsessive compulsive disorder): Qualifiers: Obsessive-compulsive disorder type: unspecified Qualified Code(s): F 42.9 - Obsessive-compulsive disorder, unspecified Status: Acute Code(s): F42.9 - Obsessive-compulsive disorder, unspecified (2) Opioid use disorder: Status: Acute Code(s): F11.99 - Opioid use, unspecified with unspecified opioid-induced disorder (3) Sedative or hypnotic abuse: Status: Acute Code(s): F13.10 - Sedative, hypnotic or anxiolytic abuse, uncomplicated Plan 01/22: continue outpt regimen for now aside from changes below. call placed to dr. mojica for collateral. bipolar disorder Dx is not well established by history; OCD is. restart tamsulosin 0.4 mg QHS per pt request. increase luvox to 75 mg QHS per pt request. 01/23: no return call from [facility] yet. increase tamsulosin to 0.8 mg QHS per pt request - states he has been on this dose in the past. decrease iloperidone to 6 mg QHS due to unsure indication and apparent IVM of jaw clenching. 01/24: doing well with decrease in iloperidone. tamsulosin helpful for bladder Sx. increase luvox to 125 mg tonight per pt request. add hydrocortisone cream for facial dermatitis. planning for DC early next week. no response from [facility]. 01/25: calm, cooperative. tolerating med changes. asking for saturday discharge. Reason for continued inpatient stay Substantial Risk for: inability to function and rapid decompensation Time Spent With Patient Time: Total time managing care of this patient today __25__ minutes.
[2023-01-25] MEDS: Hydrocortisone 1 % Cream 28.35 GM TUBE 1 APPL TOPICAL (16:07)
[2023-01-25 18:00] VITALS: BP 141/74; PULSE 85; RESP 18; TEMP 36.9; O2SAT 97
[2023-01-25] MEDS: Tamsulosin HCL 0.4 MG CAPSULE 0.8 MG PO (20:08)
[2023-01-25] MEDS: Amitriptyline HCl 50 MG TABLET 100 MG PO (20:08)
[2023-01-25] MEDS: Zolpidem Tartrate 5 MG TABLET 10 MG PO (20:08)
[2023-01-25] MEDS: Atorvastatin Calcium 20 MG TABLET PO (20:08)
[2023-01-25] MEDS: hydrOXYzine HCL 25 MG TABLET PO (22:44)
[2023-01-26 08:35] VITALS: BP 147/71; PULSE 92; RESP 20; TEMP 36.5; O2SAT 98
[2023-01-26] MEDS: fluvoxaMINE Maleate 50 MG TABLET 125 MG PO (08:36)
[2023-01-26] MEDS: Buprenorphine/Naloxone 8/2 mg FILM 1 FILM SUBLINGUAL (08:37)
[2023-01-26] MEDS: Hydrocortisone 1 % Cream 28.35 GM TUBE 1 APPL TOPICAL (09:36)
[2023-01-26 19:58] VITALS: BP 131/74; PULSE 73; RESP 18; TEMP 36.7; O2SAT 96
[2023-01-26] MEDS: Atorvastatin Calcium 20 MG TABLET PO (20:01)
[2023-01-26] MEDS: hydrOXYzine HCL 25 MG TABLET PO (20:01)
[2023-01-26] MEDS: Zolpidem Tartrate 5 MG TABLET 10 MG PO (20:01)
[2023-01-26] MEDS: Amitriptyline HCl 50 MG TABLET 100 MG PO (20:01)
[2023-01-26] MEDS: Tamsulosin HCL 0.4 MG CAPSULE 0.8 MG PO (20:01)
--- NOTE | 2023-01-26 21:17 | P.PNPSI_ITS ---
Subjective Subjective Date of Service: 01/26/23 Reason For Visit: SI Interim History: calm, cooperative. states he is frustrated with only being able to use CPAP from -. asking for DC, declined by MD in favor of previously agreed-upon plan of saturday. otherwise doing reasonably well, asking to increase luvox to 150 by/at discharge. per staff, asking for discharge. no notable events or behaviors. Mental Status Exam Mental Status Exam Narrative: adequately dressed and groomed, no PMA/PMR, cooperative. adriana complexion with dry, flaky skin on face. speech incr in rate, nml amount, loudness, latency. thoughts linear and logical. affect constricted, normo-intense, non-labile. mood OK. no SI/SIBI/HI/AVH expressed. Diagnostics Vital Signs (24Hr): Vital Signs - 24 hr 01/26/23 08:35 01/26/23 19:58 Temperature 97.7 F 98.0 F Pulse Rate 92 73 Respiratory Rate 20 18 Blood Pressure 147/71 H 131/74 Pulse Oximetry 98 96 Oxygen Delivery Method Room Air Room Air BMI result Body Mass Index 32.3 Labs 01/21/23 17:36 01/22/23 08:06 Medications Medications Current Medications Acetaminophen (Acetaminophen 325 Mg Tablet) 650 mg PO Q6H PRN PRN Reason: Headache/Pain Mild Scale (1-3) Al Hydroxide/Mg Hydroxide (Magnesium Hydrox/Alum Hydrox 30 Ml Oral.Susp) 30 ml PO Q6H PRN PRN Reason: Heartburn/Nausea Amitriptyline HCl (Amitriptyline Hcl 50 Mg Tablet) 100 mg PO BEDTIME DAVID Last Admin: 01/26/23 20:01 Dose: 100 mg Atorvastatin Calcium (Atorvastatin Calcium 20 Mg Tablet) 20 mg PO BEDTIME DAVID Last Admin: 01/26/23 20:01 Dose: 20 mg Buprenorphine/Naloxone (Buprenorphine/Naloxone 8/2 Mg Film) 1 film SUBLINGUAL DAILY DAVID Last Admin: 01/26/23 08:37 Dose: 1 film Fluvoxamine Maleate (Fluvoxamine Maleate 50 Mg Tablet) 125 mg PO DAILY DAVID Last Admin: 01/26/23 08:36 Dose: 125 mg Hydrocortisone (Hydrocortisone 1 % Cream 28.35 Gm Tube) 1 appl TOPICAL DAILY DAVID; Protocol Last Admin: 01/26/23 09:36 Dose: 1 appl Hydroxyzine HCl (Hydroxyzine Hcl 25 Mg Tablet) 25 mg PO Q6H PRN PRN Reason: Anxiety Last Admin: 01/26/23 20:01 Dose: 25 mg Magnesium Hydroxide (Milk Of Magnesia 30 Ml Oral.Susp) 30 ml PO DAILY PRN PRN Reason: Constipation Patient Own ( Iloperidone [Fanapt] 6 Mg) 6 mg PO BEDTIME DAVID Last Admin: 01/26/23 20:01 Dose: 6 mg Tamsulosin HCl (Tamsulosin Hcl 0.4 Mg Capsule) 0.8 mg PO BEDTIME DAVID Last Admin: 01/26/23 20:01 Dose: 0.8 mg Trazodone HCl (Trazodone Hcl 50 Mg Tablet) 50 mg PO BEDTIME MRX1 PRN PRN Reason: Insomnia Allergies Allergies Allergy/AdvReac Type Severity Reaction Status Date / Time lamotrigine [Lamictal] Allergy Severe rash Verified 01/21/23 17:03 amoxicillin Allergy Mild rash Verified 01/21/23 17:03 penicillins Allergy Unknown hives Uncoded 12/14/22 13:56 sulfa Allergy Unknown hives Uncoded 12/14/22 13:56 Assessment & Plan Assessment & Plan (1) OCD (obsessive compulsive disorder): Qualifiers: Obsessive-compulsive disorder type: unspecified Qualified Code(s): F 42.9 - Obsessive-compulsive disorder, unspecified Status: Acute Code(s): F42.9 - Obsessive-compulsive disorder, unspecified (2) Opioid use disorder: Status: Acute Code(s): F11.99 - Opioid use, unspecified with unspecified opioid-induced disorder (3) Sedative or hypnotic abuse: Status: Acute Code(s): F13.10 - Sedative, hypnotic or anxiolytic abuse, uncomplicated Plan 01/22: continue outpt regimen for now aside from changes below. call placed to dr. mojica for collateral. bipolar disorder Dx is not well established by history; OCD is. restart tamsulosin 0.4 mg QHS per pt request. increase luvox to 75 mg QHS per pt request. 01/23: no return call from [facility] yet. increase tamsulosin to 0.8 mg QHS per pt request - states he has been on this dose in the past. decrease iloperidone to 6 mg QHS due to unsure indication and apparent IVM of jaw clenching. 01/24: doing well with decrease in iloperidone. tamsulosin helpful for bladder Sx. increase luvox to 125 mg tonight per pt request. add hydrocortisone cream for facial dermatitis. planning for DC early next week. no response from [facility]. 01/25: calm, cooperative. tolerating med changes. asking for saturday discharge. 01/26: asking for discharge, saturday plan adhered to. planning to increase luvox to 150 mg at/by discharge. continue current mgmt for now. Reason for continued inpatient stay Substantial Risk for: inability to function and rapid decompensation Time Spent With Patient Time: Total time managing care of this patient today ____ minutes.
[2023-01-27 09:40] VITALS: BP 136/73; PULSE 84; RESP 20; TEMP 36.6; O2SAT 97
[2023-01-27] MEDS: fluvoxaMINE Maleate 50 MG TABLET 125 MG PO (09:40)
[2023-01-27] MEDS: Buprenorphine/Naloxone 8/2 mg FILM 1 FILM SUBLINGUAL (09:41)
[2023-01-27] MEDS: Hydrocortisone 1 % Cream 28.35 GM TUBE 1 APPL TOPICAL (09:42)
[2023-01-27] MEDS: Milk of Magnesia 30 ML ORAL.SUSP PO (09:57)
--- NOTE | 2023-01-27 15:47 | P.PNPSI_ITS ---
Subjective Subjective Date of Service: 01/27/23 Reason For Visit: SI Interim History: calm, cooperative. had 1:1 at 8 last night, slept very well. DC tomorrow. per staff, slept great last night. CPAP from 8 pm on. dep 0, anx 1. Mental Status Exam Mental Status Exam Narrative: adequately dressed and groomed, no PMA/PMR, cooperative. facial irritation improved. speech incr in rate, nml amount, loudness, latency. thoughts linear and logical. affect constricted, normo-intense, non-labile. mood OK. no SI/SIBI/HI/AVH expressed. Diagnostics Vital Signs (24Hr): Vital Signs - 24 hr 01/26/23 19:58 01/27/23 09:40 Temperature 98.0 F 97.9 F Pulse Rate 73 84 Respiratory Rate 18 20 Blood Pressure 131/74 136/73 Pulse Oximetry 96 97 Oxygen Delivery Method Room Air Room Air BMI result Body Mass Index 32.3 Labs 01/21/23 17:36 01/22/23 08:06 Medications Medications Current Medications Acetaminophen (Acetaminophen 325 Mg Tablet) 650 mg PO Q6H PRN PRN Reason: Headache/Pain Mild Scale (1-3) Al Hydroxide/Mg Hydroxide (Magnesium Hydrox/Alum Hydrox 30 Ml Oral.Susp) 30 ml PO Q6H PRN PRN Reason: Heartburn/Nausea Amitriptyline HCl (Amitriptyline Hcl 50 Mg Tablet) 100 mg PO BEDTIME DAVID Last Admin: 01/26/23 20:01 Dose: 100 mg Atorvastatin Calcium (Atorvastatin Calcium 20 Mg Tablet) 20 mg PO BEDTIME DAVID Last Admin: 01/26/23 20:01 Dose: 20 mg Buprenorphine/Naloxone (Buprenorphine/Naloxone 8/2 Mg Film) 1 film SUBLINGUAL DAILY DAVID Last Admin: 01/27/23 09:41 Dose: 1 film Fluvoxamine Maleate (Fluvoxamine Maleate 50 Mg Tablet) 125 mg PO DAILY DAVID Last Admin: 01/27/23 09:40 Dose: 125 mg Hydrocortisone (Hydrocortisone 1 % Cream 28.35 Gm Tube) 1 appl TOPICAL DAILY DAVID; Protocol Last Admin: 01/27/23 09:42 Dose: 1 appl Hydroxyzine HCl (Hydroxyzine Hcl 25 Mg Tablet) 25 mg PO Q6H PRN PRN Reason: Anxiety Last Admin: 01/26/23 20:01 Dose: 25 mg Magnesium Hydroxide (Milk Of Magnesia 30 Ml Oral.Susp) 30 ml PO DAILY PRN PRN Reason: Constipation Last Admin: 01/27/23 09:57 Dose: 30 ml Patient Own ( Iloperidone [Fanapt] 6 Mg) 6 mg PO BEDTIME DAVID Last Admin: 01/26/23 20:01 Dose: 6 mg Tamsulosin HCl (Tamsulosin Hcl 0.4 Mg Capsule) 0.8 mg PO BEDTIME DAVID Last Admin: 01/26/23 20:01 Dose: 0.8 mg Trazodone HCl (Trazodone Hcl 50 Mg Tablet) 50 mg PO BEDTIME MRX1 PRN PRN Reason: Insomnia Zolpidem Tartrate (Zolpidem Tartrate 5 Mg Tablet) 10 mg PO BEDTIME PRN PRN Reason: Insomnia Allergies Allergies Allergy/AdvReac Type Severity Reaction Status Date / Time lamotrigine [Lamictal] Allergy Severe rash Verified 01/21/23 17:03 amoxicillin Allergy Mild rash Verified 01/21/23 17:03 penicillins Allergy Unknown hives Uncoded 12/14/22 13:56 sulfa Allergy Unknown hives Uncoded 12/14/22 13:56 Assessment & Plan Assessment & Plan (1) OCD (obsessive compulsive disorder): Qualifiers: Obsessive-compulsive disorder type: unspecified Qualified Code(s): F 42.9 - Obsessive-compulsive disorder, unspecified Status: Acute Code(s): F42.9 - Obsessive-compulsive disorder, unspecified (2) Opioid use disorder: Status: Acute Code(s): F11.99 - Opioid use, unspecified with unspecified opioid-induced disorder (3) Sedative or hypnotic abuse: Status: Acute Code(s): F13.10 - Sedative, hypnotic or anxiolytic abuse, uncomplicated Plan 01/22: continue outpt regimen for now aside from changes below. call placed to dr. mojica for collateral. bipolar disorder Dx is not well established by history; OCD is. restart tamsulosin 0.4 mg QHS per pt request. increase luvox to 75 mg QHS per pt request. 01/23: no return call from yunior yet. increase tamsulosin to 0.8 mg QHS per pt request - states he has been on this dose in the past. decrease iloperidone to 6 mg QHS due to unsure indication and apparent IVM of jaw clenching. 01/24: doing well with decrease in iloperidone. tamsulosin helpful for bladder Sx. increase luvox to 125 mg tonight per pt request. add hydrocortisone cream for facial dermatitis. planning for DC early next week. no response from yunior. 01/25: calm, cooperative. tolerating med changes. asking for saturday discharge. 01/26: asking for discharge, saturday plan adhered to. planning to increase luvox to 150 mg at/by discharge. continue current mgmt for now. 01/27: had CPAP from 8 pm on last night, slept well. improved spirits today, planning to discharge tomorrow. Reason for continued inpatient stay Substantial Risk for: inability to function and rapid decompensation Time Spent With Patient Time: Total time managing care of this patient today ____ minutes.
[2023-01-27 19:30] VITALS: BP 123/67; PULSE 75; RESP 17; TEMP 36.6; O2SAT 97
[2023-01-27] MEDS: Tamsulosin HCL 0.4 MG CAPSULE 0.8 MG PO (19:53)
[2023-01-27] MEDS: Zolpidem Tartrate 5 MG TABLET 10 MG PO (19:53)
[2023-01-27] MEDS: Amitriptyline HCl 50 MG TABLET 100 MG PO (19:53)
[2023-01-27] MEDS: Atorvastatin Calcium 20 MG TABLET PO (19:54)
[2023-01-28 09:13] VITALS: BP 116/56; PULSE 84; RESP 16; TEMP 37.1; O2SAT 97
[2023-01-28] MEDS: Buprenorphine/Naloxone 8/2 mg FILM 1 FILM SUBLINGUAL (09:15)
[2023-01-28] MEDS: fluvoxaMINE Maleate 50 MG TABLET 125 MG PO (09:15)
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
== END 2023-01-28 12:40 | disposition home or self-care (01) | DRG 882 ==
LOC: HO.ED 17:57 → HO.PADLT16 22:34
PROVIDERS: Admitting Provider Social Worker; Emergency Provider Emergency Medicine; Visit Provider Psychiatry & Neurology Psychiatry
DX: F42.9 Obsessive-compulsive disorder, unspecified (principal); R45.851 Suicidal ideations; F11.20 Opioid dependence, uncomplicated; F13.10 Sedative, hypnotic or anxiolytic abuse, uncomplicated; Z20.822 Contact with and (suspected) exposure to COVID-19; Z79.899 Other long term (current) drug therapy
CPT/HCPCS: 36415; 80048; 80053; 80061; 80076; 80307; 81001; 82607; 82746; 83036; 84443; 85025; 87635; 94660; 99285

== ENCOUNTER → 2023-01-21 22:28 | Outpatient (BNV) | payer OTHER, SELFPAY | PROVIDERS: Admitting Provider Social Worker; Emergency Provider Emergency Medicine; Visit Provider Psychiatry & Neurology Psychiatry | DX: F13.10 Sedative, hypnotic or anxiolytic abuse, uncomplicated (principal); F11.90 Opioid use, unspecified, uncomplicated; F42.9 Obsessive-compulsive disorder, unspecified | CPT/HCPCS: 90792; 99231; 99232; 99239 ==

== ENCOUNTER 2023-04-17 11:05 | Outpatient (AMB) | payer OTHER, SELFPAY ==
--- NOTE | 2023-04-17 11:06 | A.OFFVIS_ITS ---
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 Reports mild constipation - moving his bowels q 2 days, but is reporting stool is hard and painful at times. FOR[facility]LY [facility], [facility] Medical History (Updated 02/05/23 @ 00:03 by Bernice Ann) Bipolar disorder OCD (obsessive compulsive disorder) Bipolar 1 disorder Opioid use disorder Social History Household Members: Family Housing: House Patient Tobacco Use Status: Never used Tobacco Years Smoked: 2 Substance Use Type: Opiates service: No Sexual orientation: Don't Know Review of Systems Const Reports as per HPI Physical Exam Vital Signs: Last Vital Signs Pulse 90 04/17/23 11:12 BP 134/86 04/17/23 11:12 Pulse Ox 97 04/17/23 11:12 Oxygen Delivery Method Room Air 04/17/23 11:12 Const General: cooperative and no acute distress Resp Effort & Inspection: normal respiratory effort Psych Appearance: grossly normal Mental Status: mental status grossly normal Speech and movement: Normal speech and movement present Affect: Blunted affect present Attitude: cooperative Assessment & Plan Assessment & Plan (1) Opioid use disorder: Code(s): F11.99 - Opioid use, unspecified with unspecified opioid-induced disorder Plan: -Continue suboxone at current dose -Docusate sodium ordered to address constipation -Follow up 3 months Medications: New docusate sodium 100 mg PO DAILY 30 caps 3RF Refilled buprenorphine-naloxone 8-2 mg (Suboxone) 1 film sublingual DAILY 30 days 30 ea 2RF Coding Level of Care Code Est Pt Level 3 (14257) Diagnoses Opioid use disorder F11.99
[2023-04-17 11:12] VITALS: BP 134/86; PULSE 90; O2SAT 97
== END 2023-04-17 11:29 | disposition home or self-care (01) ==
PROVIDERS: Visit Provider Nurse Practitioner Family
DX: F11.99 Opioid use, unspecified with unspecified opioid-induced disorder (principal)
CPT/HCPCS: 99213

== ENCOUNTER → 2023-04-17 11:05 | Outpatient (BNVA) | payer OTHER, SELFPAY | PROVIDERS: Visit Provider Nurse Practitioner Family | DX: F11.20 Opioid dependence, uncomplicated (principal) | CPT/HCPCS: 99212 ==

== ENCOUNTER 2023-07-19 10:31 | Outpatient (AMB) | payer OTHER, SELFPAY ==
--- NOTE | 2023-07-19 13:51 | A.OFFVISCC_ITS ---
Intake Intake Visit Reasons: MAT Allergies lamotrigine [Lamictal] Allergy (Severe, Verified 04/17/23 11:13) rash amoxicillin Allergy (Mild, Verified 04/17/23 11:13) rash penicillins Allergy (Unknown, Uncoded 04/17/23 11:13) hives sulfa Allergy (Unknown, Uncoded 04/17/23 11:13) hives HPI MAT HPI Details Pt presents via telehealth for MAT appointment Has no recovery concerns at this time Still experiencing mild constipation, moving his bowels every 2 days or so Denies cravings Has a cold right now, but overall doing well [facility] Medical History (Updated 02/05/23 @ 00:03 by Background Marissa) Bipolar disorder OCD (obsessive compulsive disorder) Bipolar 1 disorder Opioid use disorder Social History Household Members: Family Housing: House Patient Tobacco Use Status: Never used Tobacco Years Smoked: 2 Substance Use Type: Opiates service: No Sexual orientation: Don't Know Review of Systems Const Reports as per HPI Assessment & Plan Assessment & Plan (1) Opioid use disorder: Code(s): F11.99 - Opioid use, unspecified with unspecified opioid-induced disorder Plan: -Continue suboxone at current dose -Encouraged him to increase his docusate sodium from once daily to bid to address constipation -Follow up 3 months Telehealth Telehealth Location of provider rendering services: practice address Location of patient: address on file Patient Identification confirmed using: Name, : Yes Telehealth method: voice only Patient verbally consented to treatment: Yes Patient verbally consented to billing insurance company: Yes Patient informed of any privacy concerns related to visit: Yes Minutes spent on Phone/Video with Pt.: 10 Coding Level of Care Code Tele Est Pt Level 2 (64406) Diagnoses Opioid use disorder F11.99
== END 2023-07-19 10:42 | disposition home or self-care (01) ==
PROVIDERS: Visit Provider Nurse Practitioner Family
DX: F11.90 Opioid use, unspecified, uncomplicated (principal)
CPT/HCPCS: 99441

== ENCOUNTER → 2023-07-19 10:31 | Outpatient (BNVA) | payer OTHER, SELFPAY | PROVIDERS: Visit Provider Nurse Practitioner Family ==

== ENCOUNTER 2023-09-20 09:53 | Outpatient (AMB) | payer OTHER, SELFPAY ==
--- NOTE | 2023-09-20 09:55 | MHC.AM.SUB ---
Vital Signs 09/20/23 09:57 BP 128/86 Blood Pressure Location Rt brachial Position Sitting Pulse 109 H Pulse Source Pulse Oximeter Pulse Oximetry (%) 97 Oxygen Delivery Method Room Air Intake Visit Reasons: MAT Allergies lamotrigine [Lamictal] Allergy (Severe, Verified 04/17/23 11:13) rash amoxicillin Allergy (Mild, Verified 04/17/23 11:13) rash penicillins Allergy (Unknown, Uncoded 04/17/23 11:13) hives sulfa Allergy (Unknown, Uncoded 04/17/23 11:13) hives HPI HPI MAT: Details: Patient presents today for MAT appointment States he has been overtaking his films for the past month, states he has never done this before in all of his time taking suboxone Has felt as though he needed to take extra because he felt as though it had a positive impact on his depression States he feels safe, denies SI or HI Would like to go back to the 8mg dosage Plans on giving his mother his films to distribute to him [facility] Medical History (Updated 02/05/23 @ 00:03 by Bernice Ann) Bipolar disorder OCD (obsessive compulsive disorder) Bipolar 1 disorder Opioid use disorder Social History Household Members: Family Housing: House Patient Tobacco Use Status: Never used Tobacco Years Smoked: 2 Substance Use Type: Opiates service: No Sexual orientation: Don't Know Review of Systems Const Reports as per HPI Physical Exam Vital Signs: Last Vital Signs Pulse 109 H 09/20/23 09:57 BP 128/86 09/20/23 09:57 Pulse Ox 97 09/20/23 09:57 Oxygen Delivery Method Room Air 09/20/23 09:57 Const General: cooperative and no acute distress Resp Effort & Inspection: normal respiratory effort Psych Appearance: grossly normal Mental Status: mental status grossly normal Speech and movement: Normal speech and movement present Affect: Blunted affect present Attitude: cooperative Thought content: suicidality (no thoughts of suicide) and no homicidality Assessment & Plan Assessment & Plan (1) Opioid use disorder: Code(s): F11.99 - Opioid use, unspecified with unspecified opioid-induced disorder Category: Medical Plan: -Mass pat reviewed -Dose re-adjusted to 8mg from the 12mg -Discussed with him coming in to the clinic more frequently (once a month) until he feels a little more stable -Advised him to reach out to his psych prescriber to discuss his depressive symptoms, he is agreeable to this -He yuki give his mother his films to dole out to him -Follow up 1 month Medications: New buprenorphine-naloxone 8-2 mg 1 film buccal DAILY 30 ea 0RF Discontinued buprenorphine-naloxone 8-2 mg (Suboxone) Discontinued Reason: None 1 film sublingual DAILY 30 days 30 ea 2RF buprenorphine-naloxone 12-3 mg (Suboxone) Discontinued Reason: None 1 film buccal Q24H 10 ea 0RF
[2023-09-20 09:57] VITALS: BP 128/86; PULSE 109; O2SAT 97
== END 2023-09-20 10:13 | disposition home or self-care (01) ==
PROVIDERS: Visit Provider Nurse Practitioner Family
DX: F11.99 Opioid use, unspecified with unspecified opioid-induced disorder (principal)
CPT/HCPCS: 99213

== ENCOUNTER → 2023-09-20 09:53 | Outpatient (BNVA) | payer OTHER, SELFPAY | PROVIDERS: Visit Provider Nurse Practitioner Family | DX: F11.20 Opioid dependence, uncomplicated (principal); Z79.899 Other long term (current) drug therapy | CPT/HCPCS: 99212 ==

== ENCOUNTER 2023-09-27 14:00 | Outpatient (AMB) | payer OTHER, SELFPAY ==
[2023-09-27 14:01] VITALS: BP 150/92; PULSE 100; O2SAT 97
--- NOTE | 2023-09-27 14:01 | A.OFFVISCC_ITS ---
Vital Signs 09/27/23 14:01 BP 150/92 H Blood Pressure Location Rt brachial Position Sitting Pulse 100 Pulse Source Pulse Oximeter Pulse Oximetry (%) 97 Oxygen Delivery Method Room Air Intake Visit Reasons: MAT Allergies lamotrigine [Lamictal] Allergy (Severe, Verified 04/17/23 11:13) rash amoxicillin Allergy (Mild, Verified 04/17/23 11:13) rash penicillins Allergy (Unknown, Uncoded 04/17/23 11:13) hives sulfa Allergy (Unknown, Uncoded 04/17/23 11:13) hives HPI HPI MAT: Details: Patient presents to [facility] today to discuss recent medication misuse He was prescribed 30 days worth of films on 09/19 that is already gone Reports he hasn't been feeling well mentally or physically lately - he could not quantify for how long or when it started I have bi-polar so I never really feel good States he has been taking his films to feel better No SI or HI at this time He has not reached out to his psychiatrist as advised at last appointment HPI Comments Details: Patient presents for MAT visit [facility] Medical History (Updated 02/05/23 @ 00:03 by Bernice Ann) Bipolar disorder OCD (obsessive compulsive disorder) Bipolar 1 disorder Opioid use disorder Social History Household Members: Family Housing: House Patient Tobacco Use Status: Never used Tobacco Years Smoked: 2 Substance Use Type: Opiates service: No Sexual orientation: Don't Know Review of Systems Const Reports as per HPI Physical Exam Vital Signs: Last Vital Signs Pulse 100 09/27/23 14:01 BP 150/92 H 09/27/23 14:01 Pulse Ox 97 09/27/23 14:01 Oxygen Delivery Method Room Air 09/27/23 14:01 Const General: cooperative and no acute distress Resp Effort & Inspection: normal respiratory effort and able to speak in complete sentences Psych Appearance: grossly normal Mental Status: mental status grossly normal Speech and movement: Normal speech and movement present Affect: Blunted affect present Attitude: cooperative Thought process: Normal thought process present Thought content: suicidality and no homicidality Assessment & Plan Assessment & Plan (1) Opioid use disorder: Code(s): F11.99 - Opioid use, unspecified with unspecified opioid-induced disorder Category: Medical Plan: -Advised him to seek higher level of care for mental health treatment, he is unwilling to seek treatment until after he has worked today. Encouraged him to seek immediate emergency care should be begin to feel suicidal. At this time he is able to contract for safety saying he doesn't feel well, not suicidal . -Advised him to present to the ED if he begins to withdraw -DIscussed sublocade as an option to avoid overtaking, he is willing to try at this time. Will order for sublocade, educated him it could take a few weeks to obtain the injection -Plan to follow up with pt in 3 days on Saturday Medications: New buprenorphine ER (Sublocade) 300 mg (1.5 mL) subcut ONCE 1.5 mL 5RF
== END 2023-09-27 14:17 | disposition home or self-care (01) ==
PROVIDERS: Visit Provider Nurse Practitioner Family
DX: F11.99 Opioid use, unspecified with unspecified opioid-induced disorder (principal)
CPT/HCPCS: 99213

== ENCOUNTER → 2023-09-27 14:00 | Outpatient (BNVA) | payer OTHER, SELFPAY | PROVIDERS: Visit Provider Nurse Practitioner Family | DX: F11.20 Opioid dependence, uncomplicated (principal) | CPT/HCPCS: 99212 ==

== ENCOUNTER 2023-10-03 11:14 | Emergency (ER) | payer OTHER, SELFPAY ==
[2023-10-03 11:17] VITALS: BP 143/84; PULSE 122; RESP 16; TEMP 36.6; O2SAT 98; BMI 35.6
--- NOTE | 2023-10-03 11:17 | ED_ITS ---
HPI - General Adult General Chief complaint: General Medical Stated complaint: Med refill, anxious Time Seen by Provider: 10/03/23 11:54 History of Present Illness HPI narrative: The patient is a 43-year-old male on Suboxone. He says that he has been under stress for the last few weeks and has taken additional Suboxone in hopes of helping deal with his stress. Told me that he normally takes 16 mg of Suboxone daily but has gone through his supply too fast by exceeding his prescribed dose. He says he has not had any Suboxone for a few days and is feeling as if he is in withdrawal. According to the comprehensive Care team the patient took a month's worth of Suboxone in 1 week. The patient apparently went to [facility] yesterday complaining of withdrawal. He was given a prescription for Suboxone that the pharmacy would not fill. The patient is denying any medical complaints. No fever, sweats, chills. No nausea or vomiting Related Data Home Medications ?Medication ?Instructions ?Recorded ?Confirmed zolpidem 10 mg tablet (Ambien) 10 mg PO BEDTIME PRN Insomnia 02/15/20 01/21/23 amitriptyline 100 mg tablet 100 mg PO BEDTIME 01/21/23 01/21/23 atorvastatin 20 mg tablet 20 mg PO BEDTIME cholesterol 01/21/23 01/21/23 Previous Rx's ?Medication ?Instructions ?Recorded fluvoxamine 50 mg tablet 150 mg (3 x 50 mg) PO DAILY 30 01/28/23 days #90 tabs hydrocortisone 1 % topical cream 1 appl topical DAILY 30 days #10 01/28/23 grams iloperidone 12 mg tablet 6 mg (1/2 x 12 mg) PO BEDTIME 30 01/28/23 days #15 tabs tamsulosin 0.4 mg capsule 0.8 mg (2 x 0.4 mg) PO BEDTIME 30 01/28/23 days #60 caps docusate sodium 100 mg capsule 100 mg PO DAILY #30 caps 07/19/23 buprenorphine 300 mg/1.5 mL 300 mg (1.5 mL) subcut ONCE #1.5 mL 09/27/23 solution,exten.rel.subcutaneous syringe (Sublocade) buprenorphine 8 mg-naloxone 2 mg 1 film buccal DAILY #7 ea 10/03/23 sublingual film buprenorphine 8 mg-naloxone 2 mg 1 film buccal DAILY #30 ea 10/03/23 sublingual film (Suboxone) Allergies Allergy/AdvReac Type Severity Reaction Status Date / Time lamotrigine [Lamictal] Allergy Severe rash Verified 10/03/23 11:19 amoxicillin Allergy Mild rash Verified 10/03/23 11:19 penicillins Allergy Unknown hives Uncoded 10/03/23 11:19 sulfa Allergy Unknown hives Uncoded 10/03/23 11:19 Review of Systems 2 Review of Systems: Yes all other systems are reviewed and are negative [facility] Past Medical History Medical History (Updated 10/03/23 @ 14:16 by Danilo Hernández MD) Bipolar disorder OCD (obsessive compulsive disorder) Bipolar 1 disorder Opioid use disorder Social History Social History Household Members: Family Housing: House Patient Tobacco Use Status: Never used Tobacco Years Smoked: 2 Smoked in Last 30 Days: No Use of substances other than those prescribed or required for medical reasons: No Substance Use Type: Former Substance User Advance Directives: No Advance Directives Information Provided: Yes service: No Sexual orientation: Don't Know Physical Exam ED Vital Signs: Vital Signs - 24 hr 10/03/23 11:17 10/03/23 11:54 10/03/23 13:21 Temperature 98 F 97.8 F Pulse Rate 122 H 88 Respiratory Rate 16 16 16 Blood Pressure 143/84 H 120/62 Pulse Oximetry 98 97 Oxygen Delivery Method Room Air Room Air 10/03/23 14:21 Temperature 97.8 F Pulse Rate 88 Respiratory Rate 16 Blood Pressure 120/62 Pulse Oximetry 97 Oxygen Delivery Method Room Air BMI result Body Mass Index 35.6 Const Other: The patient is awake and alert. He is reasonably well groomed. He seems reasonably calm although he has some mild pressure to his speech. HENMT Other: The face is symmetrical, mucous membranes moist. Eyes Other: Pupils are round equal, conjunctivae clear Neck Other: No neck swelling, no JVD, moving his neck easily Resp Effort & Inspection: normal respiratory effort Auscultation: clear to auscultation bilaterally Cardio Rate: regular rate Rhythm: regular rhythm Heart sounds: S1 normal heart sound present and S2 normal heart sound present GI Other: Abdomen is soft and nontender Skin Other: Skin is dry and unremarkable Neuro Other: The patient is awake and alert. Speech is clear, face is symmetrical. Cranial nerves 2-12 are intact. He moves his extremities normally. He has a steady gait. He is neurologically intact. Extrem Other: No peripheral edema Psych Other: The patient is a reasonably well-kempt 43-year-old. He is oriented and appropriate. He has a mild degree of pressure to his speech. Course Course Course Narrative: This is a Rapid Medical Examination (RME) performed by Pedro Pablo Gabriel PA-C in triage. Full HPI, ROS, assessment and treatment plan per primary provider in the Main ED. 43 yo hx of OCD, opioid use disorder here for eval of I'm withdrawing from suboxone . reports feeling increasingly anxious. no other concerns at present. Reports he has been on Suboxone x3 years, began having a rough time and reports taking too much last week causing him to run out of the suboxone. He has been out of suboxone for approximately 5 days. He was seen at [facility] yesterday in an attempt to have it refilled. He was given a prescription however he cannot fill the script for another 10 days. He contacted the comprehensive care advised he come to the ED. He is requesting something to get me through the night . denies illicit substance use. denies etoh consumption. Plan: basic labs, UA, UDS Medications Administered Discontinued Medications Generic Name Dose Route Start Last Admin Trade Name Nazanin PRN Reason Stop Dose Admin Buprenorphine/Naloxone 2 film 10/03/23 12:13 10/03/23 12:17 Buprenorphine/Naloxone 8/2 Mg Film SUBLINGUAL 10/03/23 12:14 2 film ONCE ONE Administration Medical Decision Making Medical Decision Making [facility] Narrative: The patient is a 43-year-old male with a history of substance use disorder as well as obsessive-compulsive disorder. He reports using his Suboxone excessively because of anxiety. He therefore ran out of his Suboxone early. Yesterday he went to [facility] for the complaint of opioid withdrawal symptoms after having overuse his Suboxone. He was given a prescription for Suboxone which could not be filled because it was too early. Additionally he had convinced the [facility] physician to prescribe twice his current dose of Suboxone. He was referred here from his usual prescribing clinic because of his problems. Here he had a mental health evaluation by the care team. There was no indication for psychiatric hospitalization according to the care team. The recovery team was involved as well and ultimately it was determined that serum open would send a 1 week replacement prescription to his pharmacy. The patient was discharged. Lab Data 10/03/23 11:43 10/03/23 11:43 Labs: Lab Results 10/03/23 Range/Units 11:43 WBC 5.2 (4.8-10.8) X10*3/uL RBC 4.36 L (4.60-5.80) X10*6/uL Hgb 12.9 L (14.0-18.0) g/dl Hct 38.1 L (42.0-52.0) % MCV 87.4 (80.0-98.0) fL MCH 29.6 (27.0-33.0) pg MCHC 33.9 (31.0-36.0) g/dl RDW 13.3 (11.0-16.0) % Plt Count 148 L (160-400) X10*3/uL MPV 10.1 (9.4-12.4) fL Immature Gran % (Auto) 0.2 (0.0-0.4) % Neut % (Auto) 60.6 (45-73) % Lymph % (Auto) 29.4 (20-40) % Baxter % (Auto) 4.6 (2-11) % Eos % (Auto) 4.6 H (0-4) % Baso % (Auto) 0.6 (0-2) % Lymph # (Auto) 1.5 (1.2-4.9) X10*3/uL Baxter # (Auto) 0.2 (0.1-1.2) X10*3/uL Eos # (Auto) 0.2 (0.0-0.4) X10*3/uL Baso # (Auto) 0.0 (0.0-0.2) X10*3/uL Abs Immat Gran (auto) 0.01 (0.00-0.03) X10*3/uL Absolute Neuts (auto) 3.2 (2.0-8.3) x10*3/uL Absolute Nucleated RBC 0.000 (0.0-0.012) X10*3/uL Nucleated RBC % (auto) 0.0 (0.0-0.2) /100WBC Sodium 143 (135-145) mmol/L Potassium 4.1 (3.3-5.1) mmol/L Chloride 109 H (96-108) mmol/L Carbon Dioxide 29 (22-29) mmol/L Anion Gap 9 L (12-20) BUN 15 (9-16) mg/dL Creatinine 0.76 (0.5-1.4) mg/dL Estim Creat Clear Calc 138.7 Estimated GFR > 60 Random Glucose 143 H (60-115) mg/dL Calcium 9.4 (8.4-10.2) mg/dL Magnesium 2.2 (1.6-2.6) mg/dL Total Bilirubin 0.2 (0.0-1.0) mg/dL AST 16 (5-37) U/L ALT 19 (0-40) U/L Alkaline Phosphatase 46 (39-117) U/L Total Protein 7.6 (6.5-8.0) g/dL Albumin 4.9 (3.5-5.0) g/dL Lipase 74 (8-78) U/L Discharge Plan Discharge Clinical Impression: Substance use disorder Patient Disposition: Home, Self-Care Additional Instructions: I have sent a new prescription for Suboxone 8 mg films to your pharmacy. My hope is you will be able to fill this prescription although you may have to pay [id number]. Please stay in touch with your regular providers. If at any point you feel you need to speak to somebody confidentially about how you are feeling you can call the [facility] crisis line at [phone]. Return to the emergency room if worse. Prescriptions: New buprenorphine-naloxone [Suboxone] 8-2 mg film 1 film buccal DAILY Qty: 30 0RF No Action docusate sodium 100 mg capsule 100 mg PO DAILY Qty: 30 3RF buprenorphine-naloxone 8-2 mg film 1 film buccal DAILY Qty: 7 0RF atorvastatin 20 mg tablet 20 mg PO BEDTIME amitriptyline 100 mg tablet 100 mg PO BEDTIME tamsulosin 0.4 mg Capsule 0.8 mg PO BEDTIME 30 Days Qty: 60 0RF fluvoxamine 50 mg Tablet 150 mg PO DAILY 30 Days Qty: 90 0RF iloperidone 12 mg Tablet 6 mg PO BEDTIME 30 Days Qty: 15 0RF hydrocortisone 1 % Cream 1 appl topical DAILY 30 Days Qty: 10 0RF Protocol: Apply to: Apply to: face zolpidem [Ambien] 10 mg tablet 10 mg PO BEDTIME PRN (Reason: Insomnia) Sublocade 300 mg/1.5 mL solution, extended rel syringe 300 mg subcut ONCE Qty: 1.5 5RF Referrals: Muna Berger [employer] [Nurse Practitioner] - Interventions: ED Discharge Assessment Last Done: 10/03/23 14:21 Discharge Date/Time: 10/03/23 14:22 Print Language: Hong Konger
[2023-10-03 11:53] LABS: MANUAL DIFF FLAG NO
[2023-10-03 11:54] VITALS: RESP 16
[2023-10-03 11:55] LABS: Basophils Percent Auto 0.6 % (0-2); Eosinophils Absolute Auto 0.2 X10*3/uL (0.0-0.4); Eosinophils Percent Auto 4.6 % (0-4); Hematocrit 38.1 % (42.0-52.0); Hemoglobin 12.9 g/dl (14.0-18.0); Imm Gran Abs Auto 0.01 X10*3/uL (0.00-0.03); Imm Gran Pct Auto 0.2 % (0.0-0.4); Lymphocytes Absolute Auto 1.5 X10*3/uL (1.2-4.9); Lymphocytes Percent Auto 29.4 % (20-40); Mean Corpuscular HGB Conc 33.9 g/dl (31.0-36.0); Mean Corpuscular Hemoglobin 29.6 pg (27.0-33.0); Mean Corpuscular Volume 87.4 fL (80.0-98.0); Mean Platelet Volume 10.1 fL (9.4-12.4); Monocytes Absolute Auto 0.2 X10*3/uL (0.1-1.2); Monocytes Percent Auto 4.6 % (2-11); Neutrophils Absolute Auto 3.2 x10*3/uL (2.0-8.3); Neutrophils Percent Auto 60.6 % (45-73); Platelet Count 148 X10*3/uL (160-400); Red Blood Count 4.36 X10*6/uL (4.60-5.80); Red Cell Distribution Width 13.3 % (11.0-16.0); White Blood Count 5.2 X10*3/uL (4.8-10.8)
--- NOTE | 2023-10-03 11:55 | PC.NURSE ---
Jose M comes to the ED today seeking help with his increased anxiety. 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 Due to these increased stressors he reports that he took more of his suboxone because it made him feel better. He has been without his suboxone for about 4-5 days now. He reports that he is compliant with all of his other medications, particularly his bipolar medication. He reports that he wants with help with his withdrawal symptoms and help getting back on his suboxone. Patient does appear anxious upon first encounter, preoccupied with making sure he is able to get to work by 2pm today. He relays to this RN that he feels worried that he did what he did and has never done it before. He is now resting comfortably on bed in 3, offering no complaints to this RN
[2023-10-03 12:04] VITALS: PULSE 122
[2023-10-03 12:09] LABS: Alanine Aminotransferase 19 U/L (0-40); Albumin Level 4.9 g/dL (3.5-5.0); Alkaline Phosphatase 46 U/L (39-117); Anion Gap 9 (12-20); Aspartate Amino Transferase 16 U/L (5-37); Bilirubin Total 0.2 mg/dL (0.0-1.0); Blood Urea Nitrogen 15 mg/dL (9-16); Calcium 9.4 mg/dL (8.4-10.2); Carbon Dioxide 29 mmol/L (22-29); Chloride 109 mmol/L (96-108); Creatinine Clr Calc Pharmacy 138.7; Estimated Glomerular Filt Rate > 60; Glucose Random 143 mg/dL (60-115); Lipase 74 U/L (8-78); Magnesium 2.2 mg/dL (1.6-2.6); Potassium 4.1 mmol/L (3.3-5.1); Sodium 143 mmol/L (135-145); Total Protein 7.6 g/dL (6.5-8.0)
[2023-10-03] MEDS: Buprenorphine/Naloxone 8/2 mg FILM 2 FILM SUBLINGUAL (12:17)
--- NOTE | 2023-10-03 12:42 | PC.NURSE ---
Patient denies SI/HI/AH/VH
[2023-10-03 13:21] VITALS: BP 120/62; PULSE 88; RESP 16; TEMP 36.6; O2SAT 97
[2023-10-03 14:21] VITALS: BP 120/62; PULSE 88; RESP 16; TEMP 36.6; O2SAT 97
--- NOTE | 2023-10-03 14:30 | MHC.CARE ---
Patient evaluated by the CARE Team, at this time he does not require an inpatient psychiatric admission. ED provider, Dr. Carranza consulted and in agreement with plan to discharge.
--- NOTE | 2023-10-04 09:17 | MHC.CARE ---
Referral has been faxed to [facility] @[phone], will follow up with them to confirm the referral has been received.
== END 2023-10-03 14:22 | disposition home or self-care (01) ==
PROVIDERS: Physician Assistant Medical; Emergency Provider Emergency Medicine; PCP Nurse Practitioner Family
DX: F41.9 Anxiety disorder, unspecified (principal); F11.90 Opioid use, unspecified, uncomplicated; Z79.899 Other long term (current) drug therapy
CPT/HCPCS: 36415; 80053; 83690; 83735; 85025; 99284; S9485

== ENCOUNTER 2023-10-16 13:26 | Outpatient (AMB) | payer OTHER, SELFPAY ==
--- NOTE | 2023-10-16 13:27 | MHC.AM.SUB ---
Vital Signs 10/16/23 13:38 BP 150/90 H Blood Pressure Location Lt brachial Position Sitting Respiration 19 Pulse 95 Pulse Source Pulse Oximeter Pulse Oximetry (%) 97 Intake Visit Reasons: MAT Allergies lamotrigine [Lamictal] Allergy (Severe, Verified 10/03/23 11:19) rash amoxicillin Allergy (Mild, Verified 10/03/23 11:19) rash penicillins Allergy (Unknown, Uncoded 10/03/23 11:19) hives sulfa Allergy (Unknown, Uncoded 10/03/23 11:19) hives HPI HPI MAT: Details: Patient presents for OUD treatment and follow up Reports he presented to the ED in [facility] a week ago for urinary retention, while at the hospital he received a script for 8mg suboxone BID, current dosing with this clinic is 8mg daily. When asked why the ED provider increased his dose pt responded with I don't know , states he took 16 mg a few days and for the rest of the days took only 1 a day. Asking if he can increase his dose. T/w discussed with him that it is not clinically appropriate at this time to increase his dose. He has been overtaking his films because he mentally feels bad , discussed with him the medication is for withdrawal symptom management and craving management. He denies cravings or withdrawal symptoms at this time. HPI Comments Details: Patient presents for MAT visit [facility] Medical History (Updated 10/04/23 @ 00:00 by Background Daaronon) Bipolar disorder OCD (obsessive compulsive disorder) Bipolar 1 disorder Opioid use disorder Social History Household Members: Family Housing: House Patient Tobacco Use Status: Never used Tobacco Years Smoked: 2 Substance Use Type: Former Substance User service: No Sexual orientation: Don't Know Review of Systems Const Reports as per HPI Physical Exam Vital Signs: Last Vital Signs Pulse 95 10/16/23 13:38 Resp 19 10/16/23 13:38 BP 150/90 H 10/16/23 13:38 Pulse Ox 97 10/16/23 13:38 Const General: cooperative and no acute distress Resp Effort & Inspection: normal respiratory effort and able to speak in complete sentences Psych Appearance: disheveled Mental Status: mental status grossly normal Speech and movement: Normal speech and movement present Affect: Blunted affect present Attitude: cooperative Thought process: Normal thought process present Assessment & Plan Assessment & Plan (1) Opioid use disorder: Code(s): F11.99 - Opioid use, unspecified with unspecified opioid-induced disorder Category: Medical Plan: -KITTY ladd reviewed -Suboxone Rx refill sent for 1 month, longer script sent in to cover for provider vacation -Re-educated him to take his films as prescribed, and if taking 8mg daily was not adequate for cravings or withdrawal symptoms, his dosing can be reviewed -Follow up 1 month Medications: Refilled buprenorphine-naloxone 8-2 mg 1 film buccal DAILY 30 ea 0RF Discontinued buprenorphine-naloxone 8-2 mg (Suboxone) Discontinued Reason: None 1 film buccal DAILY 30 ea 0RF
[2023-10-16 13:38] VITALS: BP 150/90; PULSE 95; RESP 19; O2SAT 97
== END 2023-10-16 13:48 | disposition home or self-care (01) ==
PROVIDERS: PCP Nurse Practitioner Family; Visit Provider Nurse Practitioner Family
DX: F11.99 Opioid use, unspecified with unspecified opioid-induced disorder (principal)
CPT/HCPCS: 99213

== ENCOUNTER → 2023-10-16 13:26 | Outpatient (BNVA) | payer OTHER, SELFPAY | PROVIDERS: PCP Nurse Practitioner Family; Visit Provider Nurse Practitioner Family | DX: F11.20 Opioid dependence, uncomplicated (principal) | CPT/HCPCS: 99212 ==

== ENCOUNTER 2023-11-14 10:01 | Outpatient (AMB) | payer OTHER, SELFPAY ==
--- NOTE | 2023-11-14 10:07 | A.OFFVISCC_ITS ---
Intake Visit Reasons: MAT Allergies lamotrigine [Lamictal] Allergy (Severe, Verified 10/03/23 11:19) rash amoxicillin Allergy (Mild, Verified 10/03/23 11:19) rash penicillins Allergy (Unknown, Uncoded 10/03/23 11:19) hives sulfa Allergy (Unknown, Uncoded 10/03/23 11:19) hives Medication List - Last Reconciled 11/14/23 by Fide Canela CNP amitriptyline 100 mg PO BEDTIME atorvastatin 20 mg PO BEDTIME baclofen 10 mg PO BID buprenorphine ER (Sublocade) 300 mg (1.5 mL) subcut ONCE buprenorphine-naloxone 8-2 mg 1 film buccal DAILY eszopiclone (Lunesta) 3 mg PO BEDTIME fluvoxamine 50 mg PO DAILY iloperidone 6 mg (1/2 x 12 mg) PO BEDTIME 30 days zolpidem (Ambien) 10 mg PO BEDTIME PRN HPI HPI MAT: Details: Patient presents for OUD treatment follow up reports he has been on track with suboxone and mother has been dispensing his medications Planning to move into his own apt in a couple of months Medications reviewed and updated. He reports Baclofen has been very helpful in addressing anxiety Discussed challenges over the last month +. Discussed VNA as a way to manage medications once on his own [facility] Medical History (Updated 10/04/23 @ 00:00 by Bernice Ann) Bipolar disorder OCD (obsessive compulsive disorder) Bipolar 1 disorder Opioid use disorder Social History Household Members: Family Housing: House Patient Tobacco Use Status: Never used Tobacco Years Smoked: 2 Substance Use Type: Former Substance User service: No Sexual orientation: Don't Know Review of Systems Const Reports as per HPI and Reports no additional complaints Physical Exam Const General: cooperative and healthy appearing Nutritional Appearance: overweight Orientation/consciousness: patient oriented x3 Limitations: no limitations Neuro General: patient oriented x3 Psych Appearance: well kempt Speech and movement: Clear speech present Affect: normal affect Attitude: cooperative Thought process: Normal thought process present Thought content: Normal thought content present Insight: Good insight present (Psych) Judgement: Good judgement present (Psych) Assessment & Plan Assessment & Plan (1) Opioid use disorder: Code(s): F11.99 - Opioid use, unspecified with unspecified opioid-induced disorder Category: Medical Plan: * continue suboxone at current dose * 30 DS provided as mother is dispensing medications at this time * follow up 4 weeks Medications: New eszopiclone (Lunesta) patient reports he alternates btwn lunesta and ambien, but does not take both at the same time 3 mg PO BEDTIME Fide Canela CNP Changed From fluvoxamine 150 mg (3 x 50 mg) PO DAILY 30 days 90 tabs 0RF To fluvoxamine 50 mg PO DAILY Adam Jones MD Refilled buprenorphine-naloxone 8-2 mg 1 film buccal DAILY 30 ea 0RF Fide Canela CNP
== END 2023-11-14 10:23 | disposition home or self-care (01) ==
PROVIDERS: PCP Nurse Practitioner Family; Visit Provider Nurse Practitioner Psychiatric/Mental Health
DX: F11.99 Opioid use, unspecified with unspecified opioid-induced disorder (principal)
CPT/HCPCS: 99213

== ENCOUNTER → 2023-11-14 10:01 | Outpatient (BNVA) | payer OTHER, SELFPAY | PROVIDERS: PCP Nurse Practitioner Family; Visit Provider Nurse Practitioner Psychiatric/Mental Health | DX: F11.20 Opioid dependence, uncomplicated (principal) | CPT/HCPCS: 99212 ==

== ENCOUNTER 2023-12-06 08:19 | Outpatient (REF) | payer OTHER, SELFPAY ==
--- NOTE | 2023-12-06 08:29 | ECG_ITS ---
Test Reason : CK QTC Blood Pressure : / mmHG Vent. Rate : 080 BPM Atrial Rate : 080 BPM P-R Int : 142 ms QRS Dur : 082 ms QT Int : 388 ms P-R-T Axes : 064 053 032 degrees QTc Int : 447 ms Normal sinus rhythm Normal ECG No previous ECGs available Referred By: Joycelyn Oropeza Electronically Signed By:CARLA KEANE MD
[2023-12-06 08:48] LABS: MANUAL DIFF FLAG NO
[2023-12-06 09:21] LABS: Basophils Percent Auto 0.6 % (0-2); Eosinophils Absolute Auto 0.1 X10*3/uL (0.0-0.4); Eosinophils Percent Auto 2.2 % (0-4); Hematocrit 39.1 % (42.0-52.0); Hemoglobin 13.5 g/dl (14.0-18.0); Imm Gran Abs Auto 0.03 X10*3/uL (0.00-0.03); Imm Gran Pct Auto 0.5 % (0.0-0.4); Lymphocytes Absolute Auto 1.2 X10*3/uL (1.2-4.9); Lymphocytes Percent Auto 19.2 % (20-40); Mean Corpuscular HGB Conc 34.5 g/dl (31.0-36.0); Mean Corpuscular Hemoglobin 29.5 pg (27.0-33.0); Mean Corpuscular Volume 85.4 fL (80.0-98.0); Mean Platelet Volume 9.7 fL (9.4-12.4); Monocytes Absolute Auto 0.4 X10*3/uL (0.1-1.2); Monocytes Percent Auto 5.9 % (2-11); Neutrophils Absolute Auto 4.5 x10*3/uL (2.0-8.3); Neutrophils Percent Auto 71.6 % (45-73); Platelet Count 191 X10*3/uL (160-400); Red Blood Count 4.58 X10*6/uL (4.60-5.80); Red Cell Distribution Width 12.4 % (11.0-16.0); White Blood Count 6.3 X10*3/uL (4.8-10.8)
[2023-12-06 09:30] LABS: Estimated Average Glucose 108 mg/dL; Hemoglobin A1c % 5.4 % (<6.0)
[2023-12-06 09:57] LABS: Alanine Aminotransferase 30 U/L (0-40); Albumin Level 4.7 g/dL (3.5-5.0); Alkaline Phosphatase 45 U/L (39-117); Anion Gap 12 (12-20); Aspartate Amino Transferase 20 U/L (5-37); Bilirubin Total 0.3 mg/dL (0.0-1.0); Blood Urea Nitrogen 17 mg/dL (9-16); Calcium 9.8 mg/dL (8.4-10.2); Carbon Dioxide 26 mmol/L (22-29); Chloride 105 mmol/L (96-108); Cholesterol 272 mg/dL (<200); Estimated Glomerular Filt Rate > 60; Glucose Random 120 mg/dL (60-115); Magnesium 2.2 mg/dL (1.6-2.6); Potassium 4.6 mmol/L (3.3-5.1); Sodium 138 mmol/L (135-145); Total Protein 7.7 g/dL (6.5-8.0)
[2023-12-06 10:07] LABS: Syphilis Screen Nonreactive (Nonreactive)
[2023-12-06 10:12] LABS: HBS Num1 23.47 mIU/mL (0-7.99); HBc Num1 0.08 S/CO (0.00-0.79); HBsAGNum1 0.55 S/CO (0.00-0.99); HIV AB/AG Nonreactive (Nonreactive); HIV Num 1 0.08 S/CO (0.00-0.99); Hepatitis B Core Antibody Nonreactive (Nonreactive); Hepatitis B Surface Antigen Negative (Negative); ~HepC Num1 0.09 S/CO (0.00-0.79); ~Hepatitis B Surface Antibody REACTIVE (Nonreactive); ~Hepatitis C Antibody Nonreactive (Nonreactive)
[2023-12-06 10:16] LABS: Thyroid Stimulating Hormone 2.03 uIU/mL (0.32-4.0); Vitamin D 25-OH Total 45.7 ng/mL (>30)
[2023-12-06 10:17] LABS: Appearance Urine Cloudy; Color Urine Yellow; Glucose Urine UA Negative (Negative); Leukocyte Esterase Urine Large (3+) (Negative); Nitrite Urine Negative (Negative); PH 6.5 (5.0-9.0); Specific Gravity - Urine <= 1.005 (1.005-1.025); UMIC TRIGGER UA YES; Urine Blood Trace (Negative); Urine Ketones Negative (Negative); Urine Protein Negative (Neg-Trace)
[2023-12-06 10:20] LABS: Bacteria Urine 3+ (None Seen); Hyaline Casts Urine 0-2 /LPF (0-2); RBC Urine 0-2 /HPF (0-2); Squamous Epithelial Cell Urine 0-2 /HPF (0-2); WBC Urine 21-50 /HPF (0-5)
[2023-12-06 10:28] LABS: Amphetamine Screen Urine Not Detected (Not Detect); Barbiturates, Urine Not Detected (Not Detect); Benzodiazepines Screen Urine Not Detected (Not Detect); Buprenorphine Scr Positive (Not Detect); Cannabinoid Screen Urine Not Detected (Not Detect); Cocaine Screen Urine Not Detected (Not Detect); Fentanyl, urine Not Detected (Not Detect); Methadone Screen, Urine Not Detected (Not Detect); Opiate Screen Urine Not Detected (Not Detect); Oxycodone Screen Urine Not Detected (Not Detect); Phencyclidine Screen Urine Not Detected (Not Detect)
[2023-12-06 11:05] LABS: Folate 7.2 ng/mL (> or = 4.0); Prostate Specific Antigen 0.97 ng/mL (<0.05-4.0); Vitamin B12 745 pg/mL (200-900)
--- NOTE | 2023-12-06 11:57 | HO.PHPPROGNO ---
Subjective Subjective Date of Service: 12/06/23 Reason For Visit: F39, F42.9, R33.9 Diagnostics Labs 12/06/23 08:46 12/06/23 08:46 Labs: Laboratory Results - last 48 hr 12/06/23 12/06/23 08:43 08:46 WBC 6.3 RBC 4.58 L Hgb 13.5 L Hct 39.1 L MCV 85.4 MCH 29.5 MCHC 34.5 RDW 12.4 Plt Count 191 D MPV 9.7 Immature Gran % (Auto) 0.5 H Neut % (Auto) 71.6 Lymph % (Auto) 19.[address] [place] % (Auto) 5.9 Eos % (Auto) 2.2 Baso % (Auto) 0.6 Lymph # (Auto) 1.2 [place] # (Auto) 0.4 Eos # (Auto) 0.1 Baso # (Auto) 0.0 Abs Immat Gran (auto) 0.03 Absolute Neuts (auto) 4.5 Absolute Nucleated RBC 0.000 Nucleated RBC % (auto) 0.0 Sodium 138 Potassium 4.6 Chloride 105 Carbon Dioxide 26 Anion Gap 12 BUN 17 H Creatinine 0.75 Estim Creat Clear Calc Not Reportable Estimated GFR > 60 Random Glucose 120 H Estimat Average Glucose 108 Hemoglobin A1c % 5.4 Calcium 9.8 Magnesium 2.2 Total Bilirubin 0.3 AST 20 ALT 30 Alkaline Phosphatase 45 Total Creatine Kinase 104 Total Protein 7.7 Albumin 4.7 Cholesterol 272 H Prostate Specific Ag 0.97 Vitamin B12 745 25-OH Vitamin D Total 45.7 Folate 7.2 TSH 2.03 Free T4 0.80 Prolactin 9.2 Urine Color Yellow Urine Appearance Cloudy Urine pH 6.5 Ur Specific [place] <= 1.005 Urine Protein Negative Urine Glucose (UA) Negative Urine Ketones Negative Urine Blood Trace H Urine Nitrite Negative Ur Leukocyte Esterase Large (3+) H Urine RBC 0-2 Urine WBC 21-50 H Ur Squamous Epith Cells 0-2 Urine Bacteria 3+ Hyaline Casts 0-2 Urine Opiates Screen Not Detected Ur Buprenorphine Scrn Positive H Ur Oxycodone Screen Not Detected Urine Methadone Screen Not Detected Urine Fentanyl Screen Not Detected Ur Barbiturates Screen Not Detected Ur Phencyclidine Scrn Not Detected Ur Amphetamines Screen Not Detected U Benzodiazepines Scrn Not Detected Urine Cocaine Screen Not Detected U Marijuana (THC) Screen Not Detected T.pallidum Ab (EIA) Nonreactive Chlam trachomat DNA PCR NOT DETECTED Hep Bs Antigen Negative Hep Bs Antibody REACTIVE Hep B Core Total Ab Nonreactive Hepatitis C Ab (EIA) Nonreactive HIV 1&2 Ab/P24 Ag 4thGn Nonreactive N.gonorrhoeae DNA (PCR) NOT DETECTED Assessment & Plan Certification I certify that partial hospital treatment is medically necessary due to the symptoms and problems resulting from the patient's mental illness and the failure to treat the patient at the partial hospital level of care would likely result in the patient requiring inpatient psychiatric care which could not be prevented at a less intensive level of care. Total time managing care of this patient today ____ minutes. Discharge Plan Discharge Primary Care Provider: Shira Velazquez Patient Disposition: Home, Self-Care Referrals: Shira Velazquez, ROD [Primary Care Provider] - 1 Week Discharge Medications: New pregabalin 50 mg capsule 50 mg PO TID Qty: 30 0RF prazosin 1 mg capsule 1 mg PO BID Qty: 30 0RF No Action Fanapt 12 mg Tablet 12 mg PO BEDTIME hydroxyzine HCl 50 mg Tablet 50 mg PO DAILY atorvastatin 20 mg tablet 20 mg PO BEDTIME amitriptyline 100 mg tablet 100 mg PO BEDTIME zolpidem [Ambien] 10 mg tablet 10 mg PO BEDTIME PRN (Reason: Insomnia) Rx Instructions: Patient alternates between Lunesta and Ambien. Stated he does not take together. baclofen 10 mg tablet 10 mg PO BID fluvoxamine 50 mg tablet 50 mg PO DAILY Rx Instructions: Take at dinner time. eszopiclone [Lunesta] 3 mg tablet 3 mg PO BEDTIME PRN (Reason: Insomnia) Rx Instructions: Patient reports he alternates between Lunesta and ambien, but does not take both at the same time buprenorphine-naloxone 8-2 mg film 1 film buccal DAILY Qty: 30 0RF Print Language: Korean Discharge Date/Time: 12/06/23 08:20
[2023-12-06 13:33] LABS: CT PCR NOT DETECTED (Not Detect.); NG PCR NOT DETECTED (Not Detect.)
[2023-12-07 07:59] LABS: Prolactin 9.2 ng/mL (2.0-18.0)
[2023-12-09 16:25] LABS: Amitriptyline, Serum 114 mcg/L; Nortriptyline, Serum 62 mcg/L; Total (Ami+Nor) 176 mcg/L (100-250)
[2023-12-13 13:24] LABS: Vitamin B1 16 nmol/L (8-30)
== END 2023-12-06 08:20 | disposition home or self-care (01) ==
LOC: HO.LAB 08:19
PROVIDERS: PCP Nurse Practitioner Family; Visit Provider Psychiatry & Neurology Psychiatry
DX: F39 Unspecified mood [affective] disorder (principal); F42.9 Obsessive-compulsive disorder, unspecified; R33.9 Retention of urine, unspecified; Z12.5 Encounter for screening for malignant neoplasm of prostate; Z13.1 Encounter for screening for diabetes mellitus
CPT/HCPCS: 80053; 80307; 80335; 81001; 82306; 82465; 82550; 82607; 82746; 83036; 83735; 84146; 84153; 84425; 84439; 84443; 85025; 86704; 86706; 86780; 86803; 87340; 87389; 87491; 87591; 93005

== ENCOUNTER → 2023-12-06 08:29 | Outpatient (BNV) | payer OTHER, SELFPAY | PROVIDERS: PCP Nurse Practitioner Family; Visit Provider Internal Medicine Cardiovascular Disease | DX: F39 Unspecified mood [affective] disorder (principal) | CPT/HCPCS: 93010 ==

== ENCOUNTER 2023-12-11 14:57 | Outpatient (AMB) | payer OTHER, SELFPAY ==
--- NOTE | 2023-12-11 15:10 | A.OFFVISCC_ITS ---
Intake Visit Reasons: MAT Allergies lamotrigine [Lamictal] Allergy (Severe, Verified 10/03/23 11:19) rash amoxicillin Allergy (Mild, Verified 10/03/23 11:19) rash penicillins Allergy (Unknown, Uncoded 10/03/23 11:19) hives sulfa Allergy (Unknown, Uncoded 10/03/23 11:19) hives HPI HPI MAT: Details: Patient presents for follow up Currently prescribed Suboxone 8mg BID Reports he is in PHP here at [facility] Has been making some medications changes and is now having issues with sleep decreased amytriptylline and stopped Luvox --plans to restart due to sleep issues [facility] Medical History (Updated 12/11/23 @ 15:18 by Fide Canela CNP) Seborrheic dermatitis Elevated liver enzymes Hyperlipidemia Bipolar disorder OCD (obsessive compulsive disorder) Bipolar 1 disorder Opioid use disorder Social History Household Members: Family Household Members Other:: Mother and Step-father Housing: House Patient Tobacco Use Status: Former Tobacco user Tobacco use type: Cigarette Years Smoked: 2 Substance Use Type: Former Substance User service: No Sexual orientation: Don't Know Review of Systems Const Reports as per HPI and Reports no additional complaints Physical Exam Const General: cooperative, healthy appearing, no acute distress and well groomed Assessment & Plan Assessment & Plan (1) Opioid use disorder, severe, in sustained remission: Code(s): F11.21 - Opioid dependence, in remission Category: Medical Plan: * continue suboxone at current dose * follow up 4 weeks Medications: Refilled buprenorphine-naloxone 8-2 mg 1 film buccal DAILY 30 ea 0RF
== END 2023-12-11 15:21 | disposition home or self-care (01) ==
PROVIDERS: PCP Nurse Practitioner Family; Visit Provider Nurse Practitioner Psychiatric/Mental Health
DX: F11.21 Opioid dependence, in remission (principal)
CPT/HCPCS: 99213

== ENCOUNTER → 2023-12-11 14:57 | Outpatient (BNVA) | payer OTHER, SELFPAY | PROVIDERS: PCP Nurse Practitioner Family; Visit Provider Nurse Practitioner Psychiatric/Mental Health | DX: F11.20 Opioid dependence, uncomplicated (principal) | CPT/HCPCS: 99212 ==

== ENCOUNTER 2023-12-17 08:15 | Outpatient (RCR) | payer OTHER, SELFPAY ==
[2023-12-04 09:45] VITALS: BP 118/66; PULSE 96; TEMP 36.8
[2023-12-04 09:47] VITALS: BMI 34.4
--- NOTE | 2023-12-04 12:38 | PC.ADMIT ---
Patient is a 43 year old single male who was referred to [facility] by [facility] d/t mood liability and increased anxiety. Patient reports he is prescribed Baclofen d/t increase anxiety. Stated his anxiety is severe and has panic attacks as a result. He reports poor sleep getting 3-4 hours night. He reports he did slept for 8 hours for the past 2 nights as his friend gave him two 1mg tabs of Klonopin to try. Patient has a history of struggling with substance use. Reports he was using Kratom up until a few weeks ago as he was experiencing urinary retention. He saw a urologist and is now using a urinary catheter. He has a f/u appointment with the urologist on Saturday. He hopes to have the urinary catheter removed at that time. Patient stated he will never use Kratom again after this experience. He also has a history of overusing his Suboxone prescription. He is prescribed Suboxone 8/2 mg film one film daily and was taking 16/4-24/6 mg on some days up until 2 months ago he started taking Suboxone as prescribed. Patient stated his parents whom he lives with are supportive and have control of his medications which are kept in a locked box as a result of misuse. Patient also has a history of using prescription opiates last use was 4 years ago and is on MAT with Suboxone. [facility]. Patient reports he works for the [employer] in [place] part-time from 2-6pm, Laid off for the summer. Also working for [employer] over the summer. Patient has a dx of Bipolar d/o and reports a history of 4-5 manic episodes in his life, last episode 2017. Patient reports he was hospitalized at that time at [facility] behavioral health unit. He also reports a history of hospitalization at [facility] behavioral health unit for OCD as he he stated he could not stop thinking about his bladder. Patient is alert and oriented x4. Calm and cooperative. His thoughts are clear and logical. He presented with anxious mood and affect. Denied SI currently he stated, I struggle with suicidal ideation but I would never do it. I would check myself in the hospital if needed . Denied any plans of intent to kill himself. He was given a copy of his safety/substance use plan if needed. Medication reconciled with patient and patient's pharmacy. He stated he is taking the medication as prescribed.
--- NOTE | 2023-12-05 14:44 | HO.PHP ---
Client's case has been opened and reviewed in team.
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
--- NOTE | 2023-12-06 14:07 | HO.PHPPROGNO ---
Subjective Subjective Date of Service: 12/06/23 Reason For Visit: bipolar Interim History: Patient requesting multiple times to see provider. Anxiety has been high, he is feeling especially anxious about getting catheter out later today. He got his labs done and we reviewed a few of the findings that have so far returned. Mood is depressed, but says much of this is on account of the high anxiety. He is agreeable to discontinuing amitriptyline which may be exacerbating urinary problems. He says he was unaware but feels that this may correlate to his treatment history. He says the amitriptyline was primarily started for sleep and has not found it to be particularly sedating. He is also on Luvox for OCD symptoms. He gives history more in keeping with ADHD and in fact presents as rather scattered and disaorganized, rambling and difficulty articulating and organizing his thoughts. Will plan to target his anxiety, which perhaps is driving a lot of these problems. He might also benefit from a alpha or betablocker or medication to mitigate sympathetic activation. Still quite sweaty and anxious today. UDS negative aside from buprenorphine Medication Compliance: Yes Side effects from medications: No Attending Groups: Yes Review of Systems Acute medical concerns: No Mental Status Exam Mental Status Exam Narrative: Alert, oriented, in no acute distress. Sweaty, unkempt, anxious, but cooperative. Fidgeting. Eye contact maintained. Mood anxious, affect anxious, dysphoric. Speech rambling. Thought process scattered, linear, coherent. Thought content related to stressors, executive dysfunction, feeling overwhelmed, feeling helpless, denies hopelessness, denies SI, intention or plan. Denies any aggressive ideation. No paranoia or delusional content elicited. No evidence of psychosis. Insight and judgment fair but adequate. Diagnostics Vital Signs (24Hr): BMI result Body Mass Index 34.4 Assessment & Plan Assessment & Plan (1) Generalized anxiety disorder with panic attacks: Status: Acute Code(s): F41.1 - Generalized anxiety disorder; F41.0 - Panic disorder [episodic paroxysmal anxiety] (2) Bipolar disorder, unspecified: Status: Acute Code(s): F31.9 - Bipolar disorder, unspecified (3) Other obsessive-compulsive disorder: Status: Acute Code(s): F42.8 - Other obsessive-compulsive disorder (4) Opioid dependence on agonist therapy: Status: Acute Code(s): F11.20 - Opioid dependence, uncomplicated (5) Sedative or hypnotic abuse: Status: Acute Code(s): F13.10 - Sedative, hypnotic or anxiolytic abuse, uncomplicated Plan rechecked his vitals today: 122/83 HR 119 continue Suboxone 8-2 mg qd SL start pregabalin 50 mg TID start prazosin 1 mg BID reduce amitriptyline to 75-50 mg qhs taper off fluvoxamine continue iloperidone 12 mg qhs continue zolpidem 10 mg qhs PRN sleep vs eszopiclone 3 mg qhs PRN sleep continue other regular medications? Reviewed routine lab work findings with patient EKG, routine for baseline QTc for medication considerations Continue to monitor as per protocol Patient educated on: diagnosis, medication risk/benefits and substance abuse Informed Consent: understands Reason for contiued partial hosp. stay Substantial Risk for: inability to function and med/psych decompensation Certification I certify that partial hospital treatment is medically necessary due to the symptoms and problems resulting from the patient's mental illness and the failure to treat the patient at the partial hospital level of care would likely result in the patient requiring inpatient psychiatric care which could not be prevented at a less intensive level of care. Total time managing care of this patient today __30__ minutes. Discharge Plan Discharge Attending provider: Joycelyn Oropeza Medications: No Action Fanapt 12 mg Tablet 12 mg PO BEDTIME hydroxyzine HCl 50 mg Tablet 50 mg PO DAILY atorvastatin 20 mg tablet 20 mg PO BEDTIME amitriptyline 100 mg tablet 100 mg PO BEDTIME pregabalin 50 mg capsule 50 mg PO TID Qty: 30 0RF zolpidem [Ambien] 10 mg tablet 10 mg PO BEDTIME PRN (Reason: Insomnia) Rx Instructions: Patient alternates between Lunesta and Ambien. Stated he does not take together. baclofen 10 mg tablet 10 mg PO BID fluvoxamine 50 mg tablet 50 mg PO DAILY Rx Instructions: Take at dinner time. eszopiclone [Lunesta] 3 mg tablet 3 mg PO BEDTIME PRN (Reason: Insomnia) Rx Instructions: Patient reports he alternates between Lunesta and ambien, but does not take both at the same time buprenorphine-naloxone 8-2 mg film 1 film buccal DAILY Qty: 30 0RF Print Language: Brazilian
--- NOTE | 2023-12-09 09:57 | HO.PHP ---
PHP staff member faxed over a referral for OP therapy and med management to [facility] for Jose M Gordillo. PHP staff member is awaiting a phone call back with the appointment dates and times.
--- NOTE | 2023-12-09 11:29 | HO.PHPPROGNO ---
Subjective Subjective Date of Service: 12/09/23 Reason For Visit: bipolar Interim History: Feeling a little more calmer during the day, mood overall is okay. Slept well the first night (Saturday) but then has only been sleeping 2-3 hours each night since. Even with increasing the HS dose from 50 mg to 100 mg on Saturday night it improved only an hour or 2. Dose of Lyrica during the day remains at 50 mg in AM and 50 mg in afternoon. The prazosin wasn't available when he picked up the medication. Urinary retention has improved, bladder still a little irritated from the [place] but feeling much better since it was remained. Medication Compliance: Yes Side effects from medications: No Attending Groups: Yes Review of Systems Acute medical concerns: No Mental Status Exam Mental Status Exam Narrative: Alert, oriented, in no acute distress. Sweaty, unkempt, anxious, but cooperative. Fidgeting. Eye contact maintained. Mood anxious, affect anxious, dysphoric. Speech rambling. Thought process scattered, linear, coherent. Thought content related to stressors, executive dysfunction, feeling overwhelmed, feeling helpless, denies hopelessness, denies SI, intention or plan. Denies any aggressive ideation. No paranoia or delusional content elicited. No evidence of psychosis. Insight and judgment fair but adequate. Diagnostics Vital Signs (24Hr): BMI result Body Mass Index 34.4 Assessment & Plan Assessment & Plan (1) Other mixed anxiety disorders: Status: Acute Code(s): F41.3 - Other mixed anxiety disorders (2) Other obsessive-compulsive disorder: Status: Acute Code(s): F42.8 - Other obsessive-compulsive disorder (3) Opioid dependence on agonist therapy: Status: Acute Code(s): F11.20 - Opioid dependence, uncomplicated Plan continue Suboxone 8-2 mg qd SL continue pregabalin 50 mg in AM and afternoon increase HS dose of pregabalin from 100 mg to 200 mg start prazosin 1 mg qhs continue amitriptyline at 50 mg qhs continue iloperidone 12 mg qhs continue zolpidem 10 mg qhs PRN sleep vs eszopiclone 3 mg qhs PRN sleep discontinued: fluvoxamine continue other regular medications? Reviewed routine lab work findings with patient EKG, routine for baseline QTc for medication considerations Continue to monitor as per protocol Patient educated on: diagnosis, medication risk/benefits and substance abuse Informed Consent: understands Reason for contiued partial hosp. stay Substantial Risk for: rapid decompensation and med/psych decompensation Certification I certify that partial hospital treatment is medically necessary due to the symptoms and problems resulting from the patient's mental illness and the failure to treat the patient at the partial hospital level of care would likely result in the patient requiring inpatient psychiatric care which could not be prevented at a less intensive level of care. Total time managing care of this patient today ___30_ minutes. Discharge Plan Discharge Attending provider: Joycelyn Oropeza Additional Instructions: 12/17/2023? ?10:00 AM - 11:00 AM CHD Adult Comprehensive Assessment Prog: [facility] Clinic Site: [address] [place] [address] Staff: KALYAN KRAMER 01/15/2024? ?9:00 AM - 10:00 AM Psychiatric E/M New - Face to Face v2 Prog: Psychiatric Services Site: [address] [place] [address] Staff: NEO RAO Medications: New prazosin 1 mg capsule 1 mg PO BID-TID PRN (Reason: anxiety) Qty: 30 0RF fluvoxamine 50 mg tablet 50 mg PO BEDTIME Qty: 30 0RF Continued Fanapt 12 mg Tablet 12 mg PO BEDTIME hydroxyzine HCl 50 mg Tablet 50 mg PO DAILY atorvastatin 20 mg tablet 20 mg PO BEDTIME zolpidem [Ambien] 10 mg tablet 10 mg PO BEDTIME PRN (Reason: Insomnia) Rx Instructions: Patient alternates between Lunesta and Ambien. Stated he does not take together. buprenorphine-naloxone 8-2 mg film 1 film buccal DAILY Qty: 30 0RF eszopiclone [Lunesta] 3 mg tablet 3 mg PO BEDTIME PRN (Reason: Insomnia) Rx Instructions: Patient reports he alternates between Lunesta and ambien, but does not take both at the same time Changed amitriptyline 100 mg tablet 50 mg PO BEDTIME Qty: 14 0RF pregabalin 50 mg capsule 50 mg PO BID Qty: 60 0RF pregabalin 100 mg capsule 100 mg PO BEDTIME Qty: 30 0RF Discontinued fluvoxamine 50 mg tablet 50 mg PO DAILY Rx Instructions: Take at dinner time. Stand Alone Forms: Patient Portal Discharge page Print Language: Occitan
--- NOTE | 2023-12-13 23:43 | P.PNPSP_ITS ---
Subjective Subjective Date of Service: 12/13/23 Reason For Visit: bipolar Interim History: Patient seen for follow-up. I honestly want to keep things where they were . Reports lowering amitriptyline to 50 mg and stopping the fluvoxamine on Saturday. He reportedly slept fine that night, but the last few nights since then sleep has been awful. He has not had any urinary retention isssues, which the TCA may have been contributing. He is eager to put both medications back on even though ideally he could try one med at a time to see if one is clearly more helpful for sleep than the other - particularly in case an increased dose of Luvox would be adequate for sleep and would target OCD and perhaps would not need the amitriptyline. He could also try increasing HS Lyrica will the Luvox to see if this help with sleep. He tentatively agrees to holding the amitriptyline and taking Luvox at 100 mg to see if this helps but also relays being fixated with adding the amitriptyline back on. He reports the Lyrica has been especially helpful for mood stability as well as anxiety and says his anxiety is well- managed during the day. No further panic attacks. No SI, HI, AH, VH. Medication Compliance: Yes Side effects from medications: No Attending Groups: Yes Review of Systems Acute medical concerns: No Mental Status Exam Mental Status Exam Narrative: Alert, oriented, in no acute distress. Cooperative. Mood good, affect anxious, stable. Speech rambling. Thought process linear, coherent. Thought content related to stressors, fixated on medications otherwise future-oriented, denies hopelessness, denies SI, intention or plan. Denies any aggressive ideation. No paranoia or delusional content elicited. No evidence of psychosis. Insight and judgment intact. Diagnostics Vital Signs (24Hr): BMI result Body Mass Index 34.4 Assessment & Plan Assessment & Plan (1) Generalized anxiety disorder with panic attacks: Status: Acute Code(s): F41.1 - Generalized anxiety disorder; F41.0 - Panic disorder [episodic paroxysmal anxiety] (2) Bipolar disorder, unspecified: Status: Acute Code(s): F31.9 - Bipolar disorder, unspecified (3) Other obsessive-compulsive disorder: Status: Acute Code(s): F42.8 - Other obsessive-compulsive disorder (4) Sedative or hypnotic abuse, episodic/binge: Status: Acute Code(s): F13.10 - Sedative, hypnotic or anxiolytic abuse, uncomplicated (5) Opioid dependence on agonist therapy: Status: Acute Code(s): F11.20 - Opioid dependence, uncomplicated Plan continue Suboxone 8-2 mg qd SL continue pregabalin 50 mg in AM, 50 mg in afternoon, 100 mg QHS increase prazosin 1 mg qhs, may take an additional 1 mg prn anxiety, sleep reinstate fluvoxamine 50 mg qhs, may increase to 100 mg qhs try holding off amitriptyline continue iloperidone 12 mg qhs continue zolpidem 10 mg qhs PRN sleep vs eszopiclone 3 mg qhs PRN sleep continue other regular medications? Reviewed routine lab work findings with patient EKG, routine for baseline QTc for medication considerations Continue to monitor as per protocol Patient educated on: diagnosis, medication risk/benefits and substance abuse Informed Consent: understands Reason for contiued partial hosp. stay Substantial Risk for: inability to function and med/psych decompensation Certification I certify that partial hospital treatment is medically necessary due to the symptoms and problems resulting from the patient's mental illness and the failure to treat the patient at the partial hospital level of care would likely result in the patient requiring inpatient psychiatric care which could not be pr evented at a less intensive level of care. Total time managing care of this patient today __30__ minutes. Discharge Plan Discharge Attending provider: Joycelyn Oropeza Additional Instructions: 12/17/2023? ?10:00 AM - 11:00 AM CHD Adult Comprehensive Assessment Prog: [facility] Clinic Site: [address] [place] [address] Staff: KALYAN KRAMER 01/15/2024? ?9:00 AM - 10:00 AM Psychiatric E/M New - Face to Face v2 Prog: Psychiatric Services Site: [address] [place] [address] Staff: NEO RAO Medications: New prazosin 1 mg capsule 1 mg PO BID-TID PRN (Reason: anxiety) Qty: 30 0RF fluvoxamine 50 mg tablet 50 mg PO BEDTIME Qty: 30 0RF Continued Fanapt 12 mg Tablet 12 mg PO BEDTIME hydroxyzine HCl 50 mg Tablet 50 mg PO DAILY atorvastatin 20 mg tablet 20 mg PO BEDTIME zolpidem [Ambien] 10 mg tablet 10 mg PO BEDTIME PRN (Reason: Insomnia) Rx Instructions: Patient alternates between Lunesta and Ambien. Stated he does not take together. buprenorphine-naloxone 8-2 mg film 1 film buccal DAILY Qty: 30 0RF eszopiclone [Lunesta] 3 mg tablet 3 mg PO BEDTIME PRN (Reason: Insomnia) Rx Instructions: Patient reports he alternates between Lunesta and ambien, but does not take both at the same time Changed amitriptyline 100 mg tablet 50 mg PO BEDTIME Qty: 14 0RF pregabalin 50 mg capsule 50 mg PO BID Qty: 60 0RF pregabalin 100 mg capsule 100 mg PO BEDTIME Qty: 30 0RF Discontinued fluvoxamine 50 mg tablet 50 mg PO DAILY Rx Instructions: Take at dinner time. Stand Alone Forms: Patient Portal Discharge page Print Language: Saudi Arabian
--- NOTE | 2023-12-16 08:22 | HO.PHP ---
PHP admin, Eugenia, informed the PHP team that Jose M will not be in attendance to program today due to not feeling well. Eugenia reported no safety concerns for Jose M.
--- NOTE | 2023-12-16 08:23 | HO.PHP ---
PHP staff member received an email from [facility] with Jose M's upcoming appointments. 12/17/2023? ?10:00 AM - 11:00 AM CHD Adult Comprehensive Assessment Prog: [facility] Clinic Site: [address] [place] [address] Staff: KALYAN KRAMER 01/15/2024? ?9:00 AM - 10:00 AM Psychiatric E/M New - Face to Face v2 Prog: Psychiatric Services Site: [address] [place] [address] Staff: NEO RAO
--- NOTE | 2023-12-17 22:38 | HO.PHPPROGNO ---
Subjective Subjective Date of Service: 12/17/23 Reason For Visit: bipolar Interim History: Patient seen for follow up and is anticipating discharge at the end of the day. Doing well overall, has found Lyrica to be helpful for anxiety. Has been sleeping better at night, although dIdnt sleep well last night, is not sure why, suggests bc anticipating discharge today. Mood is good, denies any hopelessness or SI. Reports no acute issues or concerns. Medication compliant, medications well-tolerated. Denies any adverse effects.? Mood is stable.? Denies any hopelessness or SI. Denies thoughts of harming self or others at this time. Denies any aggressive ideation or HI. Denies any paranoia or AH or VH. Sleep, appetite, energy stable. Medication Compliance: Yes Side effects from medications: No Attending Groups: Yes Review of Systems Acute medical concerns: No Mental Status Exam Mental Status Exam Narrative: Alert, oriented, in no acute distress. Cooperative. Mood good, affect less anxious, stable. Speech rambling. Thought process linear, coherent. Thought content related to stressors, more future-oriented, denies hopelessness, denies SI, intention or plan. Denies any aggressive ideation. No paranoia or delusional content elicited. No evidence of psychosis. Insight and judgment intact. Diagnostics Vital Signs (24Hr): BMI result Body Mass Index 34.4 Assessment & Plan Assessment & Plan (1) Other mixed anxiety disorders: Status: Acute Code(s): F41.3 - Other mixed anxiety disorders (2) Other obsessive-compulsive disorder: Status: Acute Code(s): F42.8 - Other obsessive-compulsive disorder (3) Opioid dependence on agonist therapy: Status: Acute Code(s): F11.20 - Opioid dependence, uncomplicated Plan [facility]charge from [facility] continue Suboxone 8-2 mg qd SL continue pregabalin 50 mg in AM and afternoon continue pregabalin 100-200 mg qhs continue prazosin 1 mg qhs continue amitriptyline at 100 mg qhs continue fluvoxamine 50 mg qhs continue iloperidone 12 mg qhs continue zolpidem 10 mg qhs PRN sleep vs eszopiclone 3 mg qhs PRN sleep Refills sent to pharmacy Will defer further medication management to outpatient provider *Safety plan reviewed *Discharge diagnoses, treatment course, discharge plan have been reviewed with patient (including medication regime, medication management, potential side effects) as well as treatment rationale were also revisited *Discharge paperwork signed and given to patient, copy sent for scanning to chart Patient educated on: diagnosis, medication risk/benefits and substance abuse Informed Consent: understands Reason for contiued partial hosp. stay Substantial Risk for: stable for discharge Certification I certify that partial hospital treatment is medically necessary due to the symptoms and problems resulting from the patient's mental illness and the failure to treat the patient at the partial hospital level of care would likely result in the patient requiring inpatient psychiatric care which could not be prevented at a less intensive level of care. Total time managing care of this patient today _30___ minutes. Discharge Plan Discharge Attending provider: Joycelyn Oropeza Additional Instructions: 12/17/2023? ?10:00 AM - 11:00 AM CHD Adult Comprehensive Assessment Prog: [facility] Clinic Site: [address] [place] [address] Staff: KALYAN KRAMER 01/15/2024? ?9:00 AM - 10:00 AM Psychiatric E/M New - Face to Face v2 Prog: Psychiatric Services Site: [address] [place] [address] Staff: NEO RAO Medications: New prazosin 1 mg capsule 1 mg PO BID-TID PRN (Reason: anxiety) Qty: 30 0RF fluvoxamine 50 mg tablet 50 mg PO BEDTIME Qty: 30 0RF Continued Fanapt 12 mg Tablet 12 mg PO BEDTIME hydroxyzine HCl 50 mg Tablet 50 mg PO DAILY atorvastatin 20 mg tablet 20 mg PO BEDTIME zolpidem [Ambien] 10 mg tablet 10 mg PO BEDTIME PRN (Reason: Insomnia) Rx Instructions: Patient alternates between Lunesta and Ambien. Stated he does not take together. buprenorphine-naloxone 8-2 mg film 1 film buccal DAILY Qty: 30 0RF eszopiclone [Lunesta] 3 mg tablet 3 mg PO BEDTIME PRN (Reason: Insomnia) Rx Instructions: Patient reports he alternates between Lunesta and ambien, but does not take both at the same time Changed amitriptyline 100 mg tablet 50 mg PO BEDTIME Qty: 14 0RF pregabalin 50 mg capsule 50 mg PO BID Qty: 60 0RF pregabalin 100 mg capsule 100 mg PO BEDTIME Qty: 30 0RF Discontinued fluvoxamine 50 mg tablet 50 mg PO DAILY Rx Instructions: Take at dinner time. Stand Alone Forms: Patient Portal Discharge page Print Language: Kittitian
== END 2023-12-17 23:59 | disposition home or self-care (01) ==
LOC: HO.PHPA 08:15
PROVIDERS: Visit Provider Psychiatry & Neurology Psychiatry
DX: F41.1 Generalized anxiety disorder (principal); F41.0 Panic disorder [episodic paroxysmal anxiety]; F31.9 Bipolar disorder, unspecified; F42.8 Other obsessive-compulsive disorder; F41.3 Other mixed anxiety disorders; F11.20 Opioid dependence, uncomplicated; F13.10 Sedative, hypnotic or anxiolytic abuse, uncomplicated; Z79.899 Other long term (current) drug therapy
CPT/HCPCS: 90791; 90853

== ENCOUNTER 2024-01-08 10:04 | Outpatient (AMB) | payer OTHER, SELFPAY ==
--- NOTE | 2024-01-08 10:25 | MHC.AM.SUB ---
Intake Visit Reasons: MAT Allergies lamotrigine [Lamictal] Allergy (Severe, Verified 10/03/23 11:19) rash amoxicillin Allergy (Mild, Verified 10/03/23 11:19) rash penicillins Allergy (Unknown, Uncoded 10/03/23 11:19) hives sulfa Allergy (Unknown, Uncoded 10/03/23 11:19) hives HPI HPI MAT: Details: Patient presents for follow up increased dose to 12mg prior to this visit due to taking extra doses Reports that he feels it is due to psychiatric sx Has an appt with psychiatrist on 01/14 Seeing therapist once per week Starting work again Discussed concerns related to taking more medication than prescribed he identified his mood as a major factor in this discussed development of coping strategies [facility] Medical History (Updated 12/28/23 @ 16:20 by Joycelyn Oropeza MD) Seborrheic dermatitis Elevated liver enzymes Hyperlipidemia Bipolar disorder OCD (obsessive compulsive disorder) Bipolar 1 disorder Opioid use disorder Social History Household Members: Family Household Members Other:: Mother and Step-father Housing: House Patient Tobacco Use Status: Former Tobacco user Tobacco use type: Cigarette Years Smoked: 2 Substance Use Type: Former Substance User service: No Sexual orientation: Don't Know Review of Systems Const Reports as per HPI Physical Exam Const General: cooperative, healthy appearing, anxious and well groomed Limitations: no limitations Results AMB 14 Panel Urine Drug Screen Urine Marijuana (THC) Last Edit by Suma Juan RN on 01/08/24 10:34 Urine Cocaine Last Edit by Suma Juan RN on 01/08/24 10:34 Urine Morphine Last Edit by Suma Juan RN on 01/08/24 10:34 Urine Methamphetamine Last Edit by Suma Juan RN on 01/08/24 10:34 Urine Amphetamine Last Edit by Suma Juan RN on 01/08/24 10:34 Urine Benzodiazepine Last Edit by Suma Juan RN on 01/08/24 10:34 Urine Barbiturates Last Edit by Suma Juan RN on 01/08/24 10:34 Urine Methadone Last Edit by Suma Juan RN on 01/08/24 10:34 Urine Buprenorphine Positive Last Edit by Suma Juan RN on 01/08/24 10:34 Urine Tricyclic Antidepressant Positive Last Edit by Suma Juan RN on 01/08/24 10:34 Urine MDMA Last Edit by Suma Juan RN on 01/08/24 10:34 Urine Oxycodone Last Edit by Suma Juan RN on 01/08/24 10:34 Urine Phencyclidine Last Edit by Suma Juan RN on 01/08/24 10:34 Urine Propoxyphene Last Edit by Suma Juan RN on 01/08/24 10:34 Results Reviewed Results Reviewed: Laboratory Last Values POC Urine Buprenorphine Positive 01/08/24 10:32 POC U Tricyclic Antidpr Positive 01/08/24 10:32 Assessment & Plan Assessment & Plan (1) Opioid use disorder, severe, in sustained remission: Code(s): F11.21 - Opioid dependence, in remission Category: Medical Plan: continue suboxone 12mg daily will provide 1 week scripts with refills follow up 4 weeks Orders: Orders AMB 14 Panel Urine Drug Screen Today F11.21 - Opioid dependence, in remission
--- NOTE | 2024-01-08 10:28 | MHC.AM.SUB ---
Intake Visit Reasons: MAT Allergies lamotrigine [Lamictal] Allergy (Severe, Verified 10/03/23 11:19) rash amoxicillin Allergy (Mild, Verified 10/03/23 11:19) rash penicillins Allergy (Unknown, Uncoded 10/03/23 11:19) hives sulfa Allergy (Unknown, Uncoded 10/03/23 11:19) hives [facility] Medical History (Updated 12/28/23 @ 16:20 by Joycelyn Oropeza MD) Seborrheic dermatitis Elevated liver enzymes Hyperlipidemia Bipolar disorder OCD (obsessive compulsive disorder) Bipolar 1 disorder Opioid use disorder Social History Household Members: Family Household Members Other:: Mother and Step-father Housing: House Patient Tobacco Use Status: Former Tobacco user Tobacco use type: Cigarette Years Smoked: 2 Substance Use Type: Former Substance User service: No Sexual orientation: Don't Know Results AMB 14 Panel Urine Drug Screen Urine Marijuana (THC) Last Edit by Suma Juan RN on 01/08/24 10:34 Urine Cocaine Last Edit by Suma Juan RN on 01/08/24 10:34 Urine Morphine Last Edit by Suma Juan RN on 01/08/24 10:34 Urine Methamphetamine Last Edit by Suma Juan RN on 01/08/24 10:34 Urine Amphetamine Last Edit by Suma Juan RN on 01/08/24 10:34 Urine Benzodiazepine Last Edit by Suma Juan RN on 01/08/24 10:34 Urine Barbiturates Last Edit by Suma Juan RN on 01/08/24 10:34 Urine Methadone Last Edit by Suma Juan RN on 01/08/24 10:34 Urine Buprenorphine Positive Last Edit by Suma Juan RN on 01/08/24 10:34 Urine Tricyclic Antidepressant Positive Last Edit by Suma Juan RN on 01/08/24 10:34 Urine MDMA Last Edit by Suma Juan RN on 01/08/24 10:34 Urine Oxycodone Last Edit by Suma Juan RN on 01/08/24 10:34 Urine Phencyclidine Last Edit by Suma Juan RN on 01/08/24 10:34 Urine Propoxyphene Last Edit by Suma Juan RN on 01/08/24 10:34 Results Reviewed Results Reviewed: Laboratory Last Values POC Urine Buprenorphine Positive 01/08/24 10:32 POC U Tricyclic Antidpr Positive 01/08/24 10:32 Assessment & Plan Assessment & Plan Orders: Orders AMB 14 Panel Urine Drug Screen Today F11.21 - Opioid dependence, in remission
== END 2024-01-08 13:25 | disposition home or self-care (01) ==
PROVIDERS: PCP Nurse Practitioner Family; Visit Provider Nurse Practitioner Psychiatric/Mental Health
DX: F11.21 Opioid dependence, in remission (principal)
CPT/HCPCS: 99214

== ENCOUNTER → 2024-01-08 10:04 | Outpatient (BNVA) | payer OTHER, SELFPAY | PROVIDERS: PCP Nurse Practitioner Family; Visit Provider Nurse Practitioner Psychiatric/Mental Health | DX: F11.21 Opioid dependence, in remission (principal); Z51.81 Encounter for therapeutic drug level monitoring | CPT/HCPCS: 80307; 99212 ==

== ENCOUNTER 2024-01-11 08:50 | Emergency (ER) | payer OTHER, SELFPAY ==
[2024-01-11 09:06] VITALS: BP 140/74; PULSE 109; RESP 18; TEMP 36.7; O2SAT 98; BMI 35.7
--- NOTE | 2024-01-11 10:03 | ED.GENADULT ---
HPI - General Adult General Chief complaint: General Medical Stated complaint: medication Time Seen by Provider: 01/11/24 10:02 Source: patient Mode of arrival: ambulatory Limitations: no limitations History of Present Illness ED Provider: Amber Ash PA-C HPI narrative: Patient is a 43 year old assigned male at with a history of OCD, bipolar disorder, and opiate dependence currently on suboxone, presenting to the emergency department today requesting his suboxone dose. Patient states that he follows with our addiction team and was prescribed suboxone but took it too quickly and is now out. Patient denies any opiate use outside of his suboxone. Patient denies any dizziness, lightheadedness, abdominal pain, nausea, vomiting, fever, chills, blurry vision, double vision, loss of vision, chest pain, difficulty breathing, shortness of breath, back pain, night sweats, pain with urination, increased urinary frequency, increased urinary urgency, blood in his urine or stool, syncope or a near syncopal episode, recent trauma or falls, bowel incontinence, bladder incontinence, or any other complaints at this time. Relieving factors: none Exacerbating factors: none Associated symptoms: denies other symptoms Treatments prior to arrival: none Related Data Home Medications ?Medication ?Instructions ?Recorded ?Confirmed zolpidem 10 mg tablet (Ambien) 10 mg PO BEDTIME PRN Insomnia 02/15/20 12/04/23 atorvastatin 20 mg tablet 20 mg PO BEDTIME cholesterol 01/21/23 12/04/23 eszopiclone 3 mg tablet (Lunesta) 3 mg PO BEDTIME PRN Insomnia 11/14/23 12/04/23 hydroxyzine HCl 50 mg tablet 50 mg PO DAILY 12/04/23 12/04/23 iloperidone 12 mg tablet (Fanapt) 12 mg PO BEDTIME 12/04/23 12/04/23 Previous Rx's ?Medication ?Instructions ?Recorded amitriptyline 100 mg tablet 50 mg (1/2 x 100 mg) PO BEDTIME 12/09/23 #14 tabs prazosin 1 mg capsule 1 mg PO BID-TID PRN anxiety #30 12/09/23 caps fluvoxamine 50 mg tablet 50 mg PO BEDTIME #30 tabs 12/17/23 pregabalin 100 mg capsule 100 mg PO BEDTIME #30 caps 12/17/23 pregabalin 50 mg capsule 50 mg PO BID #60 caps 12/17/23 buprenorphine 12 mg-naloxone 3 mg 1 film buccal Q24H #7 ea 01/06/24 sublingual film (Suboxone) Allergies Allergy/AdvReac Type Severity Reaction Status Date / Time lamotrigine [Lamictal] Allergy Severe rash Verified 01/11/24 09:07 amoxicillin Allergy Mild rash Verified 01/11/24 09:07 penicillins Allergy Unknown hives Uncoded 10/03/23 11:19 sulfa Allergy Unknown hives Uncoded 10/03/23 11:19 Review of Systems Constitutional: Constitutional: Reports no additional constitutional complaints, Denies chills, Denies fever(s) and Denies night sweats Eyes: Eyes: Reports no additional eye complaints, Denies blurry vision, Denies change in vision, Denies diplopia, Denies eye discharge, Denies loss of vision and Denies eye pain ENT: Denies dizziness Cardiovascular: Cardiovascular: Reports no additional cardiovascular complaints, Denies chest pain, Denies lightheadedness, Denies Loss of Consciousness and Denies dyspnea Respiratory: Respiratory: Reports no additional respiratory complaints and Denies dyspnea Gastrointestinal: Gastrointestinal: Reports no additional gastrointestinal complaints, Denies abdominal pain, Denies melena, Denies hematochezia, Denies change in bowel habits and Denies change in stool character Genitourinary: Genitourinary: Reports no additional male genitourinary complaints, Denies hematuria, Denies oliguria, Denies difficulty urinating, Denies dysuria, Denies urinary frequency, Denies urinary hesitancy, Denies urinary incontinence and Denies urinary urgency Musculoskeletal: Musculoskeletal: Reports no additional musculoskeletal complaints, Denies numbness and Denies tingling Neurologic: Denies dizziness, Denies loss of vision, Denies numbness and Denies tingling Psychiatric: Psychiatric: Reports no additional psychiatric complaints Endocrine: Endocrine: Reports no additional endocrine complaints Hematologic/Lymphatic: Hematologic/Lymphatic: Reports no additional hematologic/lymphatic complaints Allergic/Immunologic: Allergic/Immunologic: Reports no additional allergic/immunologic complaints PMFSH Past Medical History Attestation statement: The following information was validated with the patient. Source: old records reviewed and nursing notes reviewed Medical History Seborrheic dermatitis Elevated liver enzymes Hyperlipidemia Bipolar disorder OCD (obsessive compulsive disorder) Bipolar 1 disorder Opioid use disorder Social History Social History Household Members: Family Household Members Other:: Mother and Step-father Housing: House Patient Tobacco Use Status: Former Tobacco user Tobacco use type: Cigarette Years Smoked: 2 Substance Use Type: Former Substance User Advance Directives: No Advance Directives Information Provided: Yes Do you have a plan to hurt others: No Plan service: No Sexual orientation: Don't Know Physical Exam ED Vital Signs: Vital Signs - 24 hr 01/11/24 09:06 01/11/24 10:46 Temperature 98.1 F 98.1 F Pulse Rate 109 H 109 H Respiratory Rate 18 18 Blood Pressure 140/74 H 140/74 H Pulse Oximetry 98 98 Oxygen Delivery Method Room Air Room Air BMI result Body Mass Index 35.7 Const General: cooperative, no acute distress, alert and awake Nutritional Appearance: well nourished Orientation/consciousness: patient oriented x3 Limitations: no limitations HENMT Head: Yes normal to inspection and Yes atraumatic Ears: hearing grossly normal bilaterally and external ears normal General nose exam: Normal external nose present, no nasal discharge noted and no epistaxis Face and sinus: Yes normal facial exam, No abrasion and No laceration Mouth: Normal oral and palatal mucosa present, no drooling and no muffled voice Eyes General: appearance normal, both eyes and all related structures Periorbital: periorbital findings normal Eyelids: Yes eyelids normal Conjunctivae: conjunctivae normal Pupils: Equal, round and reactive pupils present EOM: EOMs intact bilaterally Neck Neck: Yes normal visual inspection, Yes full ROM and Yes no lymphadenopathy Chest Chest palpation & inspection: normal inspection of the chest Resp Effort & Inspection: normal respiratory effort and able to speak in complete sentences GI Inspection: Yes normal to inspection Neuro General: patient oriented x3 and moves all extremities Cranial nerves: Yes Equal, round and reactive pupils present Cognition (Neuro): normal cognition Extrem General: Yes normal to inspection, Yes full ROM and Yes capillary refill normal Psych Appearance: grossly normal Mental Status: mental status grossly normal Affect: Anxious affect present Attitude: cooperative Thought process: Normal thought process present Thought content: Normal thought content present Insight: Good insight present (Psych) Medications Administered Discontinued Medications Generic Name Dose Route Start Last Admin Trade Name Freq PRN Reason Stop Dose Admin Buprenorphine/Naloxone 1 film 01/11/24 10:11 01/11/24 10:23 Buprenorphine/Naloxone 12/3 Mg Film SUBLINGUAL 01/11/24 10:12 1 film ONCE ONE Administration Medical Decision Making Medical Decision Making [facility] Narrative: Patient is a 43 year old assigned male at with a history of OCD, bipolar disorder, and opiate dependence currently on suboxone presenting to the emergency department today requesting his suboxone dose. Patient's physical exam showed an anxious individual but was otherwise unremarkable. I explained my physical exam findings to the patient. I answered all questions asked by the patient. I spoke with Fide Canela from our addiction team who agreed with dosing the patient with his Suboxone here and having him follow up with her in clinic on Saturday (01/13/2024). I stressed the importance of the patient taking his medication as directed (either prescribed or as the over the counter packaging recommends). I stressed the importance of the patient following up with his primary care provider and with the [facility]. I stressed the importance of the patient returning to the emergency department immediately if his symptoms were to worsen or if he were to develop any dizziness, shortness of breath, difficulty breathing, chest pain, blurry vision, loss of vision, nausea, vomiting, abdominal pain, fever, chills, back pain, or any other complaints. Patient verbalized agreement and understanding with this treatment plan and discharge. Differential Diagnosis Differential Diagnoses: The differential diagnosis associated with the presentation includes Suboxone misuse Suboxone use Admission/Observation Consideration of admission/observation: Escalation of care including admission/observation considered Patient would have been admitted to the hospital had his clinical presentation warranted hospital admission. Consult Healthcare Provider Management of the patient was discussed with: Floor Scrubber (spoke with the addiction team as noted in the MDM Rationale portion of this note.) Discharge Plan Discharge Clinical Impression: Encounter for monitoring Suboxone maintenance therapy Patient Disposition: Home, Self-Care Instructions: Buprenorphine/Naloxone (Into the mouth) Additional Instructions: See Fide Canela at the [facility] on Saturday (01/13/2024) as a walk in. Follow up with your primary care provider. Return to the emergency department immediately if your symptoms worsen or if you develop any dizziness, shortness of breath, difficulty breathing, chest pain, blurry vision, loss of vision, nausea, vomiting, abdominal pain, fever, chills, back pain, or any other complaints. Prescriptions: No Action buprenorphine-naloxone [Suboxone] 12-3 mg film 1 film buccal Q24H Qty: 7 0RF Fanapt 12 mg Tablet 12 mg PO BEDTIME hydroxyzine HCl 50 mg Tablet 50 mg PO DAILY prazosin 1 mg capsule 1 mg PO BID-TID PRN (Reason: anxiety) Qty: 30 0RF amitriptyline 100 mg tablet 50 mg PO BEDTIME Qty: 14 0RF pregabalin 50 mg capsule 50 mg PO BID Qty: 60 0RF pregabalin 100 mg capsule 100 mg PO BEDTIME Qty: 30 0RF fluvoxamine 50 mg tablet 50 mg PO BEDTIME Qty: 30 0RF atorvastatin 20 mg tablet 20 mg PO BEDTIME zolpidem [Ambien] 10 mg tablet 10 mg PO BEDTIME PRN (Reason: Insomnia) Rx Instructions: Patient alternates between Lunesta and Ambien. Stated he does not take together. eszopiclone [Lunesta] 3 mg tablet 3 mg PO BEDTIME PRN (Reason: Insomnia) Rx Instructions: Patient reports he alternates between Lunesta and ambien, but does not take both at the same time Referrals: [facility] [Provider Group] (Report here on 01/13/2024 as a walk in patient. ) Shira Velazquez NP [Primary Care Provider] - Interventions: ED Discharge Assessment Last Done: 01/11/24 10:46 Discharge Date/Time: 01/11/24 10:48 Print Language: Lithuanian
[2024-01-11] MEDS: Buprenorphine/Naloxone 12/3 mg FILM 1 FILM SUBLINGUAL (10:23)
[2024-01-11 10:46] VITALS: BP 140/74; PULSE 109; RESP 18; TEMP 36.7; O2SAT 98
== END 2024-01-11 10:48 | disposition home or self-care (01) ==
PROVIDERS: Emergency Provider Emergency Medicine; PCP Nurse Practitioner Family
DX: F11.20 Opioid dependence, uncomplicated (principal)
CPT/HCPCS: 99282

== ENCOUNTER 2024-01-13 09:34 | Outpatient (AMB) | payer OTHER, SELFPAY ==
--- NOTE | 2024-01-13 10:04 | MHC.AM.SUB ---
Intake Visit Reasons: Check In w Provider Allergies lamotrigine [Lamictal] Allergy (Severe, Verified 01/11/24 09:07) rash amoxicillin Allergy (Mild, Verified 01/11/24 09:07) rash penicillins Allergy (Unknown, Uncoded 10/03/23 11:19) hives sulfa Allergy (Unknown, Uncoded 10/03/23 11:19) hives HPI HPI Check In w Provider: Details: Patient presents as a walk in in the ED over the weekend due to taking all of his suboxone in 3 days (given one week rx) discussed concerns with patient--advised that films would no longer be prescribed Sublocade offered to patient --agreeable, however asking numerous times for films Education provided regarding injection PFSH Medical History Seborrheic dermatitis Elevated liver enzymes Hyperlipidemia Bipolar disorder OCD (obsessive compulsive disorder) Bipolar 1 disorder Opioid use disorder Social History Household Members: Family Household Members Other:: Mother and Step-father Housing: House Patient Tobacco Use Status: Former Tobacco user Tobacco use type: Cigarette Years Smoked: 2 Substance Use Type: Former Substance User service: No Sexual orientation: Don't Know Review of Systems Const Reports as per HPI and Reports difficulty sleeping Psych Reports anxiety Physical Exam Const General: cooperative, anxious, poor hygiene and tired appearing Office Meds Sublocade 300 mg/1.5 mL solution,extended release subcutaneous syringe Performing Provider: Fide Canela CNP Performing Location: [facility] Administered by: Mago Bergman RN on 01/13/24 10:04 Dose Route Admin Location Dispensed Lot Number Expiration Date [facility] Copy Technician 300 mg subcut RLQ 1.5 mL [id number] 01/27/25 [address]-9 [employer] Assessment & Plan Assessment & Plan (1) Opioid use disorder, severe, in sustained remission: Code(s): F11.21 - Opioid dependence, in remission Category: Medical Plan: tolerated 1st Sublocade injection next injection 4 weeks RN to follow up via telephone in one week Orders: Orders AMB Buprenorphine Injection - Patient Supplied 01/13/24 F11.21 - Opioid dependence, in remission
== END 2024-01-13 10:12 | disposition home or self-care (01) ==
PROVIDERS: PCP Nurse Practitioner Family; Visit Provider Nurse Practitioner Psychiatric/Mental Health
DX: F11.21 Opioid dependence, in remission (principal)
CPT/HCPCS: 99214

== ENCOUNTER → 2024-01-13 09:34 | Outpatient (BNVA) | payer OTHER, SELFPAY | PROVIDERS: PCP Nurse Practitioner Family; Visit Provider Nurse Practitioner Psychiatric/Mental Health | DX: F11.21 Opioid dependence, in remission (principal); Z51.81 Encounter for therapeutic drug level monitoring; Z79.899 Other long term (current) drug therapy | CPT/HCPCS: 96372; 99212; Q9992 ==

== ENCOUNTER 2024-02-11 10:00 | Outpatient (AMB) | payer OTHER, SELFPAY ==
--- NOTE | 2024-02-11 10:09 | AM.OFFVISNUR ---
Intake Visit Reasons: Sublocade Injection Allergies lamotrigine [Lamictal] Allergy (Severe, Verified 01/11/24 09:07) rash amoxicillin Allergy (Mild, Verified 01/11/24 09:07) rash penicillins Allergy (Unknown, Uncoded 10/03/23 11:19) hives sulfa Allergy (Unknown, Uncoded 10/03/23 11:19) hives Nursing Note Patient Presents for sublocade Injection. Current Dose 300mg . Given in the with LLQ no noted or stated complication. Denies any issues with previous injection. Patient endorces increased anxiety, is asking for extra strips was reminded that this is not something we are able to give, and not for anxiety. Last appt with provider was last month , will follow up with RN in 4 weeks for injection. Scheduled an appt for tommorow with Provider to go over other possible options, ei methadone . Office Meds Sublocade 300 mg/1.5 mL solution,extended release subcutaneous syringe Performing Provider: Fide Canela CNP Performing Location: [facility] Administered by: Mago Bergman RN on 02/11/24 10:46 Dose Route Admin Location Dispensed Lot Number Expiration Date [facility] Gear Grinder 300 mg subcut LLQ 1.5 mL [id number] 01/27/25 [address]-6 [employer] Assessment & Plan Assessment & Plan Orders: Orders AMB Buprenorphine Injection - Patient Supplied Today F11.90 - Opioid use, unspecified, uncomplicated Medications: New Sublocade ER (buprenorphine) 300 mg (1.5 mL) subcut ONCE 1.5 mL 0RF NS F11.90 - Opioid use, unspecified, uncomplicated
== END 2024-02-11 10:29 | disposition home or self-care (01) ==
PROVIDERS: PCP Nurse Practitioner Family
DX: F11.90 Opioid use, unspecified, uncomplicated (principal)

== ENCOUNTER → 2024-02-11 10:00 | Outpatient (BNVA) | payer OTHER, SELFPAY | PROVIDERS: PCP Nurse Practitioner Family | DX: F11.90 Opioid use, unspecified, uncomplicated (principal) | CPT/HCPCS: 96372; Q9992 ==

== ENCOUNTER 2024-02-12 09:59 | Outpatient (AMB) | payer OTHER, SELFPAY ==
--- NOTE | 2024-02-12 10:14 | MHC.AM.SUB ---
Intake Visit Reasons: Meet w Provider Allergies lamotrigine [Lamictal] Allergy (Severe, Verified 01/11/24 09:07) rash amoxicillin Allergy (Mild, Verified 01/11/24 09:07) rash penicillins Allergy (Unknown, Uncoded 10/03/23 11:19) hives sulfa Allergy (Unknown, Uncoded 10/03/23 11:19) hives HPI HPI Meet w Provider: Details: Patient presents for follow up Got Sublocade injection yesterday very anxious yesterday--initially refusing injection, but eventually agreeable to it Reports feeling better today Acknowledges increasing anxiety as the month goes on Will be seeing a new psychiatric provider --not sleeping as well as he would like [facility] Medical History Seborrheic dermatitis Elevated liver enzymes Hyperlipidemia Bipolar disorder OCD (obsessive compulsive disorder) Bipolar 1 disorder Opioid use disorder Social History Household Members: Family Household Members Other:: Mother and Step-father Housing: House Patient Tobacco Use Status: Former Tobacco user Tobacco use type: Cigarette Years Smoked: 2 Substance Use Type: Former Substance User service: No Sexual orientation: Don't Know Review of Systems Const Reports as per HPI Physical Exam Const General: cooperative, anxious and well groomed Assessment & Plan Assessment & Plan (1) Opioid use disorder, severe, in sustained remission: Code(s): F11.21 - Opioid dependence, in remission Category: Medical Plan: injection due in 4 weeks agreeable to meeting with motorcoach driver today encouraged to call office if needed
== END 2024-02-12 10:39 | disposition home or self-care (01) ==
PROVIDERS: PCP Nurse Practitioner Family; Visit Provider Nurse Practitioner Psychiatric/Mental Health
DX: F11.21 Opioid dependence, in remission (principal)
CPT/HCPCS: 99214

== ENCOUNTER → 2024-02-12 09:59 | Outpatient (BNVA) | payer OTHER, SELFPAY | PROVIDERS: PCP Nurse Practitioner Family; Visit Provider Nurse Practitioner Psychiatric/Mental Health | DX: F11.21 Opioid dependence, in remission (principal) | CPT/HCPCS: 99212 ==

== ENCOUNTER 2024-04-23 15:34 | Outpatient (AMB) | payer OTHER, SELFPAY ==
--- NOTE | 2024-04-23 15:56 | A.OFFVISCC_ITS ---
Intake Visit Reasons: MAT Office Allergies lamotrigine [Lamictal] Allergy (Severe, Verified 01/11/24 09:07) rash amoxicillin Allergy (Mild, Verified 01/11/24 09:07) rash penicillins Allergy (Unknown, Uncoded 10/03/23 11:19) hives sulfa Allergy (Unknown, Uncoded 10/03/23 11:19) hives HPI HPI MAT Office: Details: Patient scheduled appt to re-establish care Had transferred to [facility] because he wanted to be back on the oral films and when he was seen here, he was offered the injection as he was taking more suboxone than prescribed every week for several weeks Today he states that he would like to go back on the injection as he has been taking more suboxone than prescribed again This conventional mortgage underwriter inquired if his current provider offered the injeciton (Sublocade) he stated yes, however he can not recieve until May 04. Patient was advised to continue with his current provider as they have already ordered the medicaion Review of Systems Const Reports as per HPI Physical Exam Const General: cooperative and anxious Nutritional Appearance: overweight Limitations: no limitations Assessment & Plan Assessment & Plan (1) Opioid use disorder, severe, in sustained remission: Code(s): F11.21 - Opioid dependence, in remission Category: Medical Plan: * patient to follow up with outpatient [facility] treatment provider * no follow up necessary here [facility] Medical History Seborrheic dermatitis Elevated liver enzymes Hyperlipidemia Bipolar disorder OCD (obsessive compulsive disorder) Bipolar 1 disorder Opioid use disorder Social History Household Members: Family Household Members Other:: Mother and Step-father Housing: House Patient Tobacco Use Status: Former Tobacco user Tobacco use type: Cigarette Years Smoked: 2 Substance Use Type: Former Substance User service: No Sexual orientation: Don't Know Social History: living with mother and stepfather. working until last week. college degree in [employer]. Substance History: Hx of opioid dependence in remission x 3 yrs since maintained on Suboxone (recently switched from Sublocade) Hx of alcohol abuse - last drank 6 years ago Cannabis use - inoccasional, hate it last used >1 month ago Denies illicit substance abuse Per EMR, history of overuse/abuse of sedative and hyponitic medications, he reports history of benzodiazepine treatment for anxiety which sometimes helps with panic attacks, sometimes doesn't Trauma History: denies
== END 2024-04-23 16:05 | disposition home or self-care (01) ==
PROVIDERS: PCP Nurse Practitioner Family; Visit Provider Nurse Practitioner Psychiatric/Mental Health
DX: F11.21 Opioid dependence, in remission (principal)
CPT/HCPCS: 99213

== ENCOUNTER → 2024-04-23 15:34 | Outpatient (BNVA) | payer OTHER, SELFPAY | PROVIDERS: PCP Nurse Practitioner Family; Visit Provider Nurse Practitioner Psychiatric/Mental Health | DX: F11.21 Opioid dependence, in remission (principal); Z51.81 Encounter for therapeutic drug level monitoring | CPT/HCPCS: 99212 ==

== ENCOUNTER 2024-06-21 10:03 | Emergency (ER) | payer OTHER, SELFPAY ==
[2024-06-21 10:15] VITALS: BP 136/80; PULSE 131; RESP 20; TEMP 36.8; O2SAT 97; BMI 36.9
--- NOTE | 2024-06-21 10:16 | ED_ITS ---
HPI - General Adult General Chief complaint: General Medical Stated complaint: medication fill ? Related Data Home Medications ?Medication ?Instructions ?Recorded ?Confirmed zolpidem 10 mg tablet (Ambien) 10 mg PO BEDTIME PRN Insomnia 02/15/20 12/04/23 atorvastatin 20 mg tablet 20 mg PO BEDTIME cholesterol 01/21/23 12/04/23 eszopiclone 3 mg tablet (Lunesta) 3 mg PO BEDTIME PRN Insomnia 11/14/23 12/04/23 hydroxyzine HCl 50 mg tablet 50 mg PO DAILY 12/04/23 12/04/23 iloperidone 12 mg tablet (Fanapt) 12 mg PO BEDTIME 12/04/23 12/04/23 Previous Rx's ?Medication ?Instructions ?Recorded amitriptyline 100 mg tablet 50 mg (1/2 x 100 mg) PO BEDTIME 12/09/23 #14 tabs prazosin 1 mg capsule 1 mg PO BID-TID PRN anxiety #30 12/09/23 caps fluvoxamine 50 mg tablet 50 mg PO BEDTIME #30 tabs 12/17/23 pregabalin 100 mg capsule 100 mg PO BEDTIME #30 caps 12/17/23 pregabalin 50 mg capsule 50 mg PO BID #60 caps 12/17/23 buprenorphine 12 mg-naloxone 3 mg 1 film buccal Q24H #7 ea 01/06/24 sublingual film (Suboxone) buprenorphine 8 mg-naloxone 2 mg 1 film buccal DAILY #7 ea 02/03/24 sublingual film (Suboxone) Allergies Allergy/AdvReac Type Severity Reaction Status Date / Time lamotrigine [Lamictal] Allergy Severe rash Verified 06/21/24 10:20 amoxicillin Allergy Mild rash Verified 06/21/24 10:20 penicillins Allergy Unknown hives Uncoded 10/03/23 11:19 sulfa Allergy Unknown hives Uncoded 10/03/23 11:19 [facility] Past Medical History Medical History Seborrheic dermatitis Elevated liver enzymes Hyperlipidemia Bipolar disorder OCD (obsessive compulsive disorder) Bipolar 1 disorder Opioid use disorder Social History Social History Household Members: Family Household Members Other:: Mother and Step-father Housing: House Patient Tobacco Use Status: Former Tobacco user Tobacco use type: Cigarette Years Smoked: 2 Substance Use Type: Former Substance User Advance Directives: No Advance Directives Information Provided: No Do you have a plan to hurt others: No Plan service: No Sexual orientation: Don't Know Physical Exam ED Vital Signs: BMI result Body Mass Index 36.9 Course Course Course Narrative: RME performed by Amber Ash PA-C. Patient is a 43 year old assigned male at presenting to the emergency department requesting a medication refill. Patient states that he wants a prescription for lunesta because his insurance isn't paying for it and he wants to pay for it out of pocket. Patient states that he is out of his suboxone as well and needs that too. Detailed physical exam and review of systems are deferred to the primary substance abuse counselor. Patient placed back in the waiting room pending room availability. Patient left the department without completing treatment. Patient's limited physical examination in triage was unremarkable. Patient alert, oriented, non- labored breathing, clear voice. Discharge Plan Discharge Clinical Impression: Encounter for medication refill Patient Disposition: Left W/O Completing Treatment Prescriptions: No Action buprenorphine-naloxone [Suboxone] 12-3 mg film 1 film buccal Q24H Qty: 7 0RF buprenorphine-naloxone [Suboxone] 8-2 mg film 1 film buccal DAILY Qty: 7 0RF Fanapt 12 mg Tablet 12 mg PO BEDTIME hydroxyzine HCl 50 mg Tablet 50 mg PO DAILY prazosin 1 mg capsule 1 mg PO BID-TID PRN (Reason: anxiety) Qty: 30 0RF amitriptyline 100 mg tablet 50 mg PO BEDTIME Qty: 14 0RF pregabalin 50 mg capsule 50 mg PO BID Qty: 60 0RF pregabalin 100 mg capsule 100 mg PO BEDTIME Qty: 30 0RF fluvoxamine 50 mg tablet 50 mg PO BEDTIME Qty: 30 0RF atorvastatin 20 mg tablet 20 mg PO BEDTIME zolpidem [Ambien] 10 mg tablet 10 mg PO BEDTIME PRN (Reason: Insomnia) Rx Instructions: Patient alternates between Lunesta and Ambien. Stated he does not take together. eszopiclone [Lunesta] 3 mg tablet 3 mg PO BEDTIME PRN (Reason: Insomnia) Rx Instructions: Patient reports he alternates between Lunesta and ambien, but does not take both at the same time Discharge Date/Time: 06/21/24 17:29
== END 2024-06-21 17:29 | disposition left against medical advice (07) ==
PROVIDERS: Emergency Provider Emergency Medicine; PCP Nurse Practitioner Family
DX: Z76.0 Encounter for issue of repeat prescription (principal); Z79.899 Other long term (current) drug therapy
CPT/HCPCS: 99281; 99282